=== PATIENT | female | born 1985 | race Caucasian/White ===

== ENCOUNTER 2018-11-18 01:07 | Emergency (ER) | payer MEDICAID ==
[~2018-11-18] VITALS: Ht 149.9 cm; Wt 45.9 kg
[2018-11-18] MEDS ORDERED: DEPA1TAB PO (01:21)
[2018-11-18] MEDS ORDERED: METOCLOPRAMIDE INJ 10MG/2ML VIAL (J2765) IV ONE (01:45)
[2018-11-18] MEDS ORDERED: NS 500 ML IV ONE (01:45)
[2018-11-18] MEDS ORDERED: KETOROLAC 30 MG/ML VIAL (J1885) IV ONE (01:45)
[2018-11-18] MEDS ORDERED: VALPROATE SOD INJ 125 MG in D5W 50 ML IV ONE (02:00)
[2018-11-18 02:10] LABS: BASO # 0.1 10^3/uL (0.0-0.2); BASO % 0.6 % (0.0-1.0); EOS # 0.8 10^3/uL (0.0-0.50); EOS % 4.4 % (0.0-3.0); HEMATOCRIT 41.9 % (36.0-47.0); HEMOGLOBIN 13.6 g/dl (12.0-15.5); LYMPH # 3.5 10^3/uL (1.5-4.5); LYMPH % 19.6 % (24.0-44.0); MEAN CORPUSCULAR HGB CONC 32.5 g/dl (32.0-36.5); MEAN CORPUSCULAR VOLUME 92.5 fl (80.0-96.0); MONO # 1.7 10^3/uL (0.0-0.8); MONO % 9.3 % (0.0-5.0); NEUTROPHILS # 11.7 10^3/uL (1.8-7.7); NEUTROPHILS % 65.5 % (36.0-66.0); PLATELET COUNT, AUTOMATED 175 10^3/uL (150-450); RED BLOOD COUNT 4.53 10^6/uL (4.00-5.40); WHITE BLOOD COUNT 17.9 10^3/uL (4.0-10.0)
[2018-11-18 02:29] LABS: HCG, SERUM QUALITATIVE NEGATIVE (NEGATIVE)
[2018-11-18 02:38] LABS: ALBUMIN 3.6 GM/DL (3.2-5.2); ALT/SGPT 43 U/L (12-78); AMYLASE 41 U/L (25-115); BILIRUBIN,TOTAL 0.2 MG/DL (0.2-1.0); BLOOD UREA NITROGEN 11 MG/DL (7-18); C REACTIVE PROTEIN QUANTITATIV < 0.30 MG/DL (0.00-0.30); CALCIUM LEVEL 9.5 MG/DL (8.5-10.1); CARBON DIOXIDE LEVEL 25 MEQ/L (21-32); CHLORIDE LEVEL 109 MEQ/L (98-107); CK-MB VALUE MASS < 1.0 NG/ML (<3.6); CPK CREATINE PHOSPHOKINASE 111 U/L (26-192); CREATININE FOR GFR 0.77 MG/DL (0.55-1.30); GLOMERULAR FILTRATION RATE > 60.0 (>60); GLUCOSE, FASTING 122 MG/DL (70-100); LIPASE 131 U/L (73-393); POTASSIUM SERUM 3.9 MEQ/L (3.5-5.1); SODIUM LEVEL 143 MEQ/L (136-145); TOTAL PROTEIN 7.1 GM/DL (6.4-8.2); TROPONIN I < 0.02 NG/ML (< 0.10); VALPROIC ACID (DEPAKOTE) 44.2 UG/ML (50.0-100.0)
[2018-11-18] MEDS: GASTROGRAFIN SOLUTION 30ML PO SCH ×2 (03:00→03:50)
[2018-11-18] MEDS ORDERED: diphenhydrAMINE INJ 50MG/ML VIAL (J1200) IV ONE (03:15)
[2018-11-18 03:24] LABS: AMORPHOUS SEDIMENT MODERATE (NEGATIVE); APPEARANCE, URINE CLOUDY (CLEAR); BACTERIA, URINE AUTO NEGATIVE (NEGATIVE); BILIRUBIN, URINE AUTO NEGATIVE (NEGATIVE); BLOOD, URINE BLOOD NEGATIVE (NEGATIVE); COLOR, URINE YELLOW (YELLOW); GLUCOSE, URINE (UA) AUTO NEGATIVE (NEGATIVE); KETONE, URINE AUTO NEGATIVE (NEGATIVE); LEUKOCYTE ESTERASE, URINE AUTO NEGATIVE (NEGATIVE); NITRITE, URINE AUTO NEGATIVE (NEGATIVE); PROTEIN, URINE AUTO NEGATIVE (NEGATIVE); RBC, URINE AUTO 1 /HPF (0-3); SPECIFIC GRAVITY URINE AUTO 1.014 (1.002-1.035); SQUAMOUS EPITHELIAL CELL UR AU 0 /HPF (0-6); WBC, URINE AUTO 0 /HPF (0-3)
[2018-11-18] MEDS ORDERED: ISOVUE-370 76% 125ML VIAL (Q9967 PER ML) As Ordered ONE (03:25)
[2018-11-18] MEDS ORDERED: REGL10TA6 PO (06:05)
[2018-11-18 06:17] VITALS: BP 109/70
--- NOTE | 2018-11-18 09:07 | REP ---
CHEST: Two views. There is no evidence of acute infiltrate. No pleural effusion is seen. The heart is normal in size. The mediastinal silhouette is unremarkable. The visualized osseous structures are intact. IMPRESSION: No acute pulmonary disease. Electronically Signed by Wil Lion MD 11/18/2018 03:57 P
--- NOTE | 2018-11-18 09:28 | REP ---
CT ABDOMEN AND PELVIS WITH ORAL AND IV CONTRAST: TECHNIQUE: Axial contrast enhanced images from the lung bases to the pubic symphysis using 100 mL Isovue 370 intravenous contrast material with multiplanar reformations. Visualized lung bases are clear. The liver, gallbladder, spleen, adrenals, pancreas and kidneys appear unremarkable. There is no hydronephrosis bilaterally. There is no abdominal aortic aneurysm. There is no adenopathy. There is no free air or free fluid. No bowel wall thickening is seen. There is no evidence of appendicitis. I see no pelvic mass. The urinary bladder is unremarkable. Fairly large amount of fecal material is seen throughout the colon. Large amount of ingested material is seen in the stomach. There is mild dilatation of small bowel loops in the left upper quadrant with possible mild mucosal thickening and possible mild enteritis. IMPRESSION: Large amount of fecal material in the colon and ingested material in the stomach. Mild dilatation of small bowel loops in the left upper quadrant with possible mild scattered mucosal thickening may indicate mild enteritis. No other significant acute findings. A preliminary report was provided by [facility] at the time of the exam. Electronically Signed by Wil Lion MD 11/18/2018 03:57 P
--- NOTE | 2018-11-19 06:12 | ECGEPIP ---
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
== END 2018-11-18 06:19 | disposition home or self-care (01) ==
LOC: M ED 01:07 → EDBD 01:07 → M ED 06:19
DX: K52.9 Noninfective gastroenteritis and colitis, unspecified (principal); R56.9 Unspecified convulsions; Z79.899 Other long term (current) drug therapy; Z88.1 Allergy status to other antibiotic agents
CPT/HCPCS: 71046; 74177; 80053; 80164; 81001; 82150; 82550; 82553; 83690; 84703; 85025; 86140; 93005; 96361; 96365; 96375; 99284; J1200; J1885; J2765; Q9963; Q9967

== ENCOUNTER → 2018-11-29 | Outpatient (REF) | payer MEDICAID ==
[~2018-11-29] MED LIST: DEPA1TAB PO; REGL10TA6 PO
[2018-11-29 13:33] LABS: BASO # 0.2 10^3/uL (0.0-0.2); BASO % 1.4 % (0.0-1.0); EOS # 4.3 10^3/uL (0.0-0.50); HEMATOCRIT 42.6 % (36.0-47.0); HEMOGLOBIN 13.7 g/dl (12.0-15.5); LYMPH # 3.7 10^3/uL (1.5-4.5); LYMPH % 23.5 % (24.0-44.0); MEAN CORPUSCULAR HEMOGLOBIN 30.7 pg (27.0-33.0); MEAN CORPUSCULAR HGB CONC 32.2 g/dl (32.0-36.5); MEAN CORPUSCULAR VOLUME 95.5 fl (80.0-96.0); MONO # 1.5 10^3/uL (0.0-0.8); MONO % 9.8 % (0.0-5.0); NEUTROPHILS # 5.8 10^3/uL (1.8-7.7); NEUTROPHILS % 36.8 % (36.0-66.0); PLATELET COUNT, AUTOMATED 134 10^3/uL (150-450); RED BLOOD COUNT 4.46 10^6/uL (4.00-5.40); WHITE BLOOD COUNT 15.7 10^3/uL (4.0-10.0)
[2018-11-29 14:02] LABS: ALBUMIN 3.8 GM/DL (3.2-5.2); ALT/SGPT 38 U/L (12-78); BILIRUBIN,TOTAL 0.3 MG/DL (0.2-1.0); BLOOD UREA NITROGEN 16 MG/DL (7-18); CALCIUM LEVEL 8.8 MG/DL (8.5-10.1); CARBON DIOXIDE LEVEL 25 MEQ/L (21-32); CHLORIDE LEVEL 108 MEQ/L (98-107); CREATININE FOR GFR 0.73 MG/DL (0.55-1.30); GLOMERULAR FILTRATION RATE > 60.0 (>60); GLUCOSE, FASTING 64 MG/DL (70-100); POTASSIUM SERUM 4.5 MEQ/L (3.5-5.1); RHEUMATOID FACTOR QUANT 10.3 IU/ML (<15.0); SODIUM LEVEL 139 MEQ/L (136-145); TOTAL PROTEIN 6.7 GM/DL (6.4-8.2); VALPROIC ACID (DEPAKOTE) 48.7 UG/ML (50.0-100.0)
[2018-11-29 14:22] LABS: EOS % 27.6 % (0.0-3.0)
[2018-11-29 15:05] LABS: ERYTHROCYTE SEDIMENTATION RATE 4 mm/hr (0-20)
[2018-11-30 14:53] LABS: ANTINUCLEAR ANTIBODIES DIRECT Negative (Negative)
== END ==
LOC: M LABNEURO 09:50
PROVIDERS: ATTEND Psychiatry & Neurology Neurology
DX: G40.89 Other seizures (principal)

== ENCOUNTER → 2018-12-31 | Outpatient (REF) | payer OTHER | LOC: M LAB REF 13:17 | PROVIDERS: ATTEND Specialist | DX: Z12.4 Encounter for screening for malignant neoplasm of cervix (principal); N87.0 Mild cervical dysplasia ==

== ENCOUNTER → 2019-01-31 | Outpatient (REF) | payer OTHER ==
[2019-01-31 15:30] LABS: FREE T3 3.3 PG/ML (2.2-4.0); FREE T4 0.86 NG/DL (0.76-1.46); FREE THYROXINE INDEX 2.7 % (1.3-4.8); THYROID STIMULATING HORMONE 3.13 uIU/ML (0.358-3.740); THYROXINE (T4) 7.2 UG/DL (4.5-12.0); TOTAL T3 105.6 NG/DL (60.0-181.0)
== END ==
LOC: M LABNEURO 11:45
PROVIDERS: ATTEND Psychiatry & Neurology Neurology
DX: R94.6 Abnormal results of thyroid function studies (principal)

== ENCOUNTER 2020-01-30 08:04 | Emergency (ER) | payer OTHER ==
[~2020-01-30] VITALS: Ht 149.9 cm; Wt 58.2 kg
[2020-01-30] MEDS ORDERED: ibuprofen 400 (08:13)
[2020-01-30] MEDS ORDERED: ONDANSETRON 4MG/2ML VIAL IV ONE (08:30)
[2020-01-30] MEDS ORDERED: NS 1,000 ML IV ONE (08:30)
[2020-01-30 08:45] LABS: BASO # 0.1 10^3/uL (0.0-0.2); BASO % 0.9 % (0.0-1.0); EOS # 0.3 10^3/uL (0.0-0.5); EOS % 2.3 % (0.0-3.0); HEMATOCRIT 40.6 % (36.0-47.0); LYMPH % 25.5 % (24.0-44.0); MEAN CORPUSCULAR HEMOGLOBIN 30.2 pg (27.0-33.0); MEAN CORPUSCULAR VOLUME 94.2 fl (80.0-96.0); MONO # 1.4 10^3/uL (0.0-0.8); MONO % 11.6 % (0.0-5.0); NEUTROPHILS # 6.8 10^3/uL (1.5-8.5); PLATELET COUNT, AUTOMATED 163 10^3/uL (150-450); RED BLOOD COUNT 4.31 10^6/uL (4.00-5.40); WHITE BLOOD COUNT 11.6 10^3/uL (4.0-10.0)
[2020-01-30 09:15] LABS: BLOOD UREA NITROGEN 11 MG/DL (7-18); CALCIUM LEVEL 8.4 MG/DL (8.5-10.1); CARBON DIOXIDE LEVEL 23 MEQ/L (21-32); CHLORIDE LEVEL 112 MEQ/L (98-107); CREATININE FOR GFR 0.68 MG/DL (0.55-1.30); GLOMERULAR FILTRATION RATE > 60.0 (>60); GLUCOSE, FASTING 111 MG/DL (70-100); POTASSIUM SERUM 3.8 MEQ/L (3.5-5.1); SODIUM LEVEL 142 MEQ/L (136-145)
--- NOTE | 2020-01-30 10:25 | REP ---
RENAL ULTRASOUND: Real-time sonographic evaluation of the kidneys performed. The kidneys are normal in size and echotexture, right kidney measuring 9.8 x 4.1 x 4.0 cm and left kidney 9.3 x 3.8 x 4.3 cm. There is no hydronephrosis or nephrolithiasis. No renal mass is seen. Ureteral jets are seen in the urinary bladder bilaterally with Doppler color evaluation. IMPRESSION: Negative renal ultrasound. Electronically Signed by Wil Lion MD 01/30/2020 01:15 P
[2020-01-30] MEDS ORDERED: AUGM875T28 PO (11:03)
[2020-01-30 11:05] VITALS: BP 120/56
[2020-01-30] MEDS ORDERED: AUGMENTIN 875 MG TAB PO ONE (11:15)
== END 2020-01-30 11:18 | disposition home or self-care (01) ==
LOC: M ED 08:04
DX: R10.814 Left lower quadrant abdominal tenderness (principal); F17.210 Nicotine dependence, cigarettes, uncomplicated; Z88.0 Allergy status to penicillin; Z88.8 Allergy status to other drugs, medicaments and biological substances
CPT/HCPCS: 76775; 80048; 81001; 84702; 85025; 87086; 96374; 99284; J2405

== ENCOUNTER → 2020-02-02 | Outpatient (REF) | payer OTHER ==
[~2020-02-02] MED LIST changes: +AUGM875T28 PO; +ibuprofen 400
[2020-02-02 15:56] LABS: FREE T4 1.05 NG/DL (0.76-1.46)
[2020-02-02 16:00] LABS: LUTEINIZING HORMONE 1.7 mIU/mL; PROGESTERONE 6.37 NG/ML; PROLACTIN 4.9 NG/ML
[2020-02-02 16:01] LABS: FOLLICLE STIMULATING HORMONE 0.9 mIU/mL
== END ==
LOC: M PLALAB 13:10
PROVIDERS: ATTEND Specialist
DX: N92.6 Irregular menstruation, unspecified (principal)

== ENCOUNTER → 2020-02-15 | Outpatient (CLI) | payer OTHER ==
[~2020-02-15] MED LIST changes: +ISOVUE-370 76% 100ML VIAL As Ordered ONE; +NORC1TAB7 PO; +ONDA4TAB6 PO; +clomid PO
--- NOTE | 2020-02-15 14:41 | REP ---
HYSTEROSALPINGOGRAM: Four views. HISTORY: Primary infertility. PROCEDURE: Endometrium is cannulated and contrast was injected by the attending boxing promoter. Fluoroscopic spot films are acquired along with fluoroscopy. 0.5 minutes of fluoroscopy time was utilized. FINDINGS: Fluoroscopy spot radiographs document filling of a normal endometrial cavity. The uterus is tipped somewhat to the right. Normal isthmic and ampullary fallopian tube opacification is achieved and bilateral tubal patency was documented. IMPRESSION: Normal hysterosalpingogram. Bilateral tubal patency is documented. Electronically Signed by Albert Chavarria MD 02/15/2020 05:18 P
--- NOTE | 2020-02-16 13:52 | RO ---
DATE OF PROCEDURE: 02/15/2020 PREPROCEDURE DIAGNOSIS: Primary infertility. POSTPROCEDURE DIAGNOSIS: Primary infertility. PROCEDURE: Hysterosalpingogram. SURGEON: Moises Guillen MD HEALTH EDUCATOR: ANESTHESIA: None. ESTIMATED BLOOD LOSS: Minimal. FINDINGS: Normal-appearing endometrial cavity with bilateral patency of fallopian tubes with normal fill and spill. DESCRIPTION OF PROCEDURE: Procedure summary. The patient was brought to the radiology suite. Consent previously signed for HSG procedure. The patient was positioned on the table in lithotomy position. Fluoroscope was positioned over the patient. A speculum was placed in the vagina. The anterior lip of the cervix was grasped with tenaculum. The cervix was prepped with Betadine. An HSG catheter was threaded through the cervix and the balloon inflated inside the cervix. The radiologist was then called to the room. Radiopaque dye was instilled through the catheter tubing into the uterus. Immediate fill and spill on both sides was observed. Findings are as noted above. The patient tolerated the procedure well. All instruments were removed.
== END ==
LOC: M RADPRO 12:10
PROVIDERS: ATTEND Specialist
DX: N97.0 Female infertility associated with anovulation (principal)
CPT/HCPCS: 58340; 74740; Q9967

== ENCOUNTER → 2020-02-19 | Outpatient (REF) | payer OTHER ==
[~2020-02-19] MED LIST changes: -ISOVUE-370 76% 100ML VIAL As Ordered ONE; -NORC1TAB7 PO; -ONDA4TAB6 PO; -clomid PO
== END ==
LOC: M LAB REF 10:04
PROVIDERS: ATTEND Physician Assistant
DX: N39.0 Urinary tract infection, site not specified (principal)

== ENCOUNTER 2020-05-24 19:15 | Emergency (ER) | payer OTHER ==
[~2020-05-24] VITALS: Ht 149.9 cm; Wt 54.5 kg
[2020-05-24] MEDS ORDERED: clomid PO (19:41)
[2020-05-24] MEDS ORDERED: NS 1,000 ML IV ONE (21:45)
[2020-05-24] MEDS ORDERED: ONDANSETRON 4MG/2ML VIAL IV ONE (21:45)
[2020-05-24 22:07] LABS: BASO # 0.1 10^3/uL (0.0-0.2); BASO % 0.3 % (0.0-1.0); EOS # 0.1 10^3/uL (0.0-0.5); EOS % 0.6 % (0.0-3.0); HEMATOCRIT 46.2 % (36.0-47.0); HEMOGLOBIN 14.3 g/dl (12.0-15.5); LYMPH % 4.5 % (24.0-44.0); MEAN CORPUSCULAR HEMOGLOBIN 27.4 pg (27.0-33.0); MEAN CORPUSCULAR VOLUME 88.5 fl (80.0-96.0); MONO # 1.7 10^3/uL (0.0-0.8); MONO % 7.5 % (0.0-5.0); NEUTROPHILS # 19.4 10^3/uL (1.5-8.5); NEUTROPHILS % 86.4 % (36.0-66.0); PLATELET COUNT, AUTOMATED 164 10^3/uL (150-450); RED BLOOD COUNT 5.22 10^6/uL (4.00-5.40); WHITE BLOOD COUNT 22.4 10^3/uL (4.0-10.0)
[2020-05-24] MEDS ORDERED: MORPHINE 4 MG/ML 1ML VIAL/SYRINGE (J2270) IV PRN (22:15)
[2020-05-25 00:36] LABS: HCG, SERUM QUALITATIVE NEGATIVE (NEGATIVE)
[2020-05-25 00:45] LABS: ALBUMIN 3.6 GM/DL (3.2-5.2); ALT/SGPT 64 U/L (12-78); BILIRUBIN,DIRECT < 0.1 MG/DL (0.0-0.2); BILIRUBIN,TOTAL 0.4 MG/DL (0.2-1.0); BLOOD UREA NITROGEN 10 MG/DL (7-18); CALCIUM LEVEL 8.7 MG/DL (8.5-10.1); CARBON DIOXIDE LEVEL 22 MEQ/L (21-32); CHLORIDE LEVEL 119 MEQ/L (98-107); CREATININE FOR GFR 0.66 MG/DL (0.55-1.30); GLOMERULAR FILTRATION RATE > 60.0 (>60); GLUCOSE, FASTING 112 MG/DL (70-100); LIPASE 149 U/L (73-393); POTASSIUM SERUM 5.4 MEQ/L (3.5-5.1); SODIUM LEVEL 148 MEQ/L (136-145); TOTAL PROTEIN 7.2 GM/DL (6.4-8.2)
[2020-05-25] MEDS ORDERED: ISOVUE-370 76% 100ML VIAL As Ordered ONE (01:00)
--- NOTE | 2020-05-25 01:46 | REPVR ---
PROCEDURE INFORMATION: Exam: CT Abdomen and Pelvis with Contrast Exam date and time: 05/25/20 (1:01am) Age: 35 years old Clinical indication: Right-sided abdominal pain TECHNIQUE: Imaging protocol: Computed tomography of the abdomen and pelvis with intravenous contrast. Radiation optimization: All CT scans at this facility use at least one of these dose optimization techniques: automated exposure control; mA and/or kV adjustment per patient size (includes targeted exams where dose is matched to clinical indication); or iterative reconstruction. Contrast material: Iso Contrast volume: 100 ml Contrast route: IV COMPARISON: CT ABDOMEN PELVIS of 11/18/18 FINDINGS: Liver: Normal. No solid mass. Gallbladder and bile ducts: Normal. No calcified stones. No ductal dilatation. Pancreas: Normal. No ductal dilatation. Spleen: Prominent spleen (unchanged appearance). Adrenals: Normal. No mass. Kidneys and ureters: Normal. No hydronephrosis. Stomach and bowel: The distal esophagus is mildly distended and fluid-filled. No bowel obstruction. Multiple thickened, fluid-filled, mildly distended small bowel loops (predominantly in the lower abdomen and pelvis). The colon most likely is unremarkable (colonic loops are not optimally distended nor opacified, and are difficult to fully evaluate). Appendix: A normal appendix is visualized. Intraperitoneal space: Unremarkable. No free air. No significant fluid collection. Vasculature: Unremarkable. No abdominal aortic aneurysm. Lymph nodes: Unremarkable. No enlarged lymph nodes. Urinary bladder: Unremarkable as visualized. Reproductive: Unremarkable as visualized. Fluid: Small amount of pelvic fluid. Bones/joints: Unremarkable. No acute fracture. Soft tissues: Unremarkable. IMPRESSION: Thickened, inflamed small bowel loops in the lower abdomen and pelvis -- probably distal jejunal and ileal loops. The colon most likely is not involved. A nonspecific small bowel enteritis is likely -- perhaps infectious etiology; perhaps inflammatory bowel disease. Small amount of lower pelvic fluid. No discrete abscess. No hydronephrosis. Prominent spleen again seen. Electronically signed by: Deborah Hilario On 05/25/2020 01:46:23 AM
[2020-05-25 02:39] VITALS: BP 90/54
[2020-05-25] MEDS ORDERED: ONDA4TAB6 PO (02:39)
== END 2020-05-25 02:57 | disposition home or self-care (01) ==
LOC: M ED 19:15
DX: K52.9 Noninfective gastroenteritis and colitis, unspecified (principal); E03.9 Hypothyroidism, unspecified; F17.200 Nicotine dependence, unspecified, uncomplicated; Z88.1 Allergy status to other antibiotic agents; Z88.8 Allergy status to other drugs, medicaments and biological substances; Z79.899 Other long term (current) drug therapy
CPT/HCPCS: 74177; 80048; 80076; 81001; 83690; 84703; 85025; 96361; 96374; 96375; 99284; J2270; J2405; Q9967

== ENCOUNTER 2020-06-22 13:12 | Emergency (ER) | payer OTHER ==
[~2020-06-22] VITALS: Ht 149.9 cm; Wt 56.5 kg
[~2020-06-22 13:12] MED LIST changes: +ONDA4TAB6 PO; +clomid PO
[2020-06-22] MEDS ORDERED: BOOSTRIX/ADACEL VACCINE (DIPHTH/PERTUSS/ACELL/TETANUS) 0.5ML SYR IM ONE (14:15)
--- NOTE | 2020-06-22 14:37 | REP ---
INDICATION: middle finger stuck in car door COMPARISON: None. TECHNIQUE: Four views right 3rd digit obtained. FINDINGS: Four views of the right 4th digit are performed. There is an oblique nondisplaced fracture of the distal phalanx. No other acute fracture or dislocation is seen. IMPRESSION: Oblique nondisplaced fracture 3rd distal phalanx. <Electronically signed by Wil Lion > 06/22/20 [id number]
[2020-06-22] MEDS ORDERED: NORC1TAB7 PO (14:55)
[2020-06-22 15:05] VITALS: BP 113/53
== END 2020-06-22 15:10 | disposition home or self-care (01) ==
LOC: M ED 13:12
DX: S62.662A Nondisplaced fracture of distal phalanx of right middle finger, initial encounter for closed fracture (principal); S60.418A Abrasion of other finger, initial encounter; W23.0XXA Caught, crushed, jammed, or pinched between moving objects, initial encounter; Y92.810 Car as the place of occurrence of the external cause; F17.200 Nicotine dependence, unspecified, uncomplicated; Z88.1 Allergy status to other antibiotic agents; Z79.899 Other long term (current) drug therapy

== ENCOUNTER 2020-11-17 16:15 | Emergency (ER) | payer OTHER ==
[~2020-11-17] VITALS: Ht 149.9 cm; Wt 55.9 kg
[~2020-11-17 16:15] MED LIST changes: +NORC1TAB7 PO
[2020-11-17] MEDS ORDERED: ONDANSETRON 4MG/2ML VIAL IV ONE (17:05)
[2020-11-17] MEDS ORDERED: KETOROLAC 30 MG/ML 1ML VIAL IV ONE (17:05)
[2020-11-17] MEDS ORDERED: NS 1,000 ML IV ONE (17:05)
[2020-11-17 17:48] LABS: BASO # 0.1 10^3/uL (0.0-0.2); BASO % 0.3 % (0.0-1.0); EOS # 0.2 10^3/uL (0.0-0.5); EOS % 0.6 % (0.0-3.0); HEMATOCRIT 46.2 % (36.0-47.0); HEMOGLOBIN 14.3 g/dl (12.0-15.5); LYMPH % 6.8 % (24.0-44.0); MEAN CORPUSCULAR HEMOGLOBIN 26.7 pg (27.0-33.0); MEAN CORPUSCULAR VOLUME 86.4 fl (80.0-96.0); MONO # 2.3 10^3/uL (0.0-0.8); NEUTROPHILS % 83.3 % (36.0-66.0); PLATELET COUNT, AUTOMATED 146 10^3/uL (150-450); RED BLOOD COUNT 5.35 10^6/uL (4.00-5.40)
[2020-11-17] MEDS ORDERED: ISOVUE-370 76% 100ML VIAL As Ordered ONE (18:06)
[2020-11-17 18:15] LABS: ALT/SGPT 45 U/L (12-78); BILIRUBIN,DIRECT < 0.1 MG/DL (0.0-0.2); BILIRUBIN,TOTAL 0.3 MG/DL (0.2-1.0); LIPASE 106 U/L (73-393); TOTAL PROTEIN 7.8 GM/DL (6.4-8.2)
[2020-11-17 18:19] LABS: WHITE BLOOD COUNT 28.8 10^3/uL (4.0-10.0)
--- NOTE | 2020-11-17 18:58 | REPVR ---
PROCEDURE INFORMATION: Exam: CT Abdomen And Pelvis With Contrast Exam date and time: 11/17/2020 6:29 PM Age: 35 years old Clinical indication: Abdominal pain; Localized; Right lower quadrant (rlq); Additional info: Rlq pain TECHNIQUE: Imaging protocol: Computed tomography of the abdomen and pelvis with contrast. Radiation optimization: All CT scans at this facility use at least one of these dose optimization techniques: automated exposure control; mA and/or kV adjustment per patient size (includes targeted exams where dose is matched to clinical indication); or iterative reconstruction. Contrast material: ISOVUE 370; Contrast volume: 100 ml; Contrast route: INTRAVENOUS (IV); COMPARISON: CT ABD/PEL W/IV CONTRAST ONLY 05/25/2020 1:01 AM FINDINGS: Mediastinal space: A small sliding hiatal hernia is present. Liver: There is a diffuse decrease in hepatic parenchymal density, consistent with steatosis. Gallbladder and bile ducts: Normal. No calcified stones. No ductal dilation. Pancreas: Normal. No ductal dilation. Spleen: Normal. No splenomegaly. Adrenal glands: Normal. No mass. Kidneys and ureters: Normal. No hydronephrosis. Stomach and bowel: Multiple fluid-filled mildly dilated loops of small bowel in the mid abdomen, with mild engorgement of the Vasa recta, findings consistent with enteritis. Boggy appearance of the right colon may indicate segmental colitis. Appendix: No evidence of appendicitis. Intraperitoneal space: Unremarkable. No free air. No significant fluid collection. Vasculature: Unremarkable. No abdominal aortic aneurysm. Lymph nodes: Unremarkable. No enlarged lymph nodes. Urinary bladder: Unremarkable as visualized. Reproductive: Unremarkable as visualized. Bones/joints: Unremarkable. No acute fracture. Soft tissues: Unremarkable. IMPRESSION: 1. A small sliding hiatal hernia is present. 2. There is a diffuse decrease in hepatic parenchymal density, consistent with steatosis. 3. Multiple fluid-filled mildly dilated loops of small bowel in the mid abdomen, with mild engorgement of the Vasa recta, findings consistent with enteritis. 4. Boggy appearance of the right colon may indicate segmental colitis. Electronically signed by: Damon Rogers On 11/17/2020 18:58:14 PM
[2020-11-17] MEDS ORDERED: metroNIDAZOLE (FLAGYL) 500MG TABLET PO ONE (19:25)
[2020-11-17] MEDS ORDERED: CIPROFLOXACIN 500MG TABLET PO ONE (19:25)
[2020-11-17] MEDS ORDERED: FLAG500T PO (19:27)
[2020-11-17] MEDS ORDERED: ONDA4TAB6 PO (19:27)
[2020-11-17] MEDS ORDERED: CIPR-249 PO (19:27)
[2020-11-17 19:50] VITALS: BP 117/61
[2020-11-17] MEDS ORDERED: VANC125C3 PO (22:33)
== END 2020-11-17 19:50 | disposition home or self-care (01) ==
LOC: M ED 16:15
DX: K52.9 Noninfective gastroenteritis and colitis, unspecified (principal); Z88.1 Allergy status to other antibiotic agents; Z88.8 Allergy status to other drugs, medicaments and biological substances; F17.200 Nicotine dependence, unspecified, uncomplicated; F12.10 Cannabis abuse, uncomplicated; E87.1 Hypo-osmolality and hyponatremia; E03.9 Hypothyroidism, unspecified; K44.0 Diaphragmatic hernia with obstruction, without gangrene
CPT/HCPCS: 36415; 74177; 80047; 80076; 83690; 84702; 85025; 87505; 96361; 96374; 96375; 99284; J1885; J2405; Q9967

== ENCOUNTER → 2021-01-15 | Outpatient (REF) | payer OTHER ==
[~2021-01-15] MED LIST changes: +CIPR-249 PO; +FLAG500T PO; +VANC125C3 PO
[2021-01-15 18:21] LABS: HEMATOCRIT 42.1 % (36.0-47.0); HEMOGLOBIN 13.1 g/dl (12.0-15.5); MEAN CORPUSCULAR HEMOGLOBIN 28.7 pg (27.0-33.0); MEAN CORPUSCULAR HGB CONC 31.1 g/dl (32.0-36.5); MEAN CORPUSCULAR VOLUME 92.1 fl (80.0-96.0); PLATELET COUNT, AUTOMATED 139 10^3/uL (150-450); RED BLOOD COUNT 4.57 10^6/uL (4.00-5.40)
[2021-01-15 20:11] LABS: HIV 1&2 SCREEN CENTAUR NEGATIVE (NEGATIVE)
== END ==
LOC: M PLALAB 14:34
PROVIDERS: ATTEND Specialist
DX: Z34.01 Encounter for supervision of normal first pregnancy, first trimester (principal)

== ENCOUNTER 2021-02-28 11:08 | Emergency (ER) | payer OTHER ==
[~2021-02-28] VITALS: Ht 149.9 cm; Wt 58.8 kg
[2021-02-28] MEDS ORDERED: PRENTAB53 PO (11:14)
[2021-02-28 11:54] LABS: BASO # 0.1 10^3/uL (0.0-0.2); BASO % 0.4 % (0.0-1.0); EOS # 0.2 10^3/uL (0.0-0.5); EOS % 1.5 % (0.0-3.0); HEMATOCRIT 33.5 % (36.0-47.0); HEMOGLOBIN 10.6 g/dl (12.0-15.5); LYMPH # 2.3 10^3/uL (1.5-5.0); LYMPH % 16.2 % (24.0-44.0); MEAN CORPUSCULAR HEMOGLOBIN 29.3 pg (27.0-33.0); MEAN CORPUSCULAR HGB CONC 31.6 g/dl (32.0-36.5); MEAN CORPUSCULAR VOLUME 92.5 fl (80.0-96.0); MONO # 1.4 10^3/uL (0.0-0.8); MONO % 9.8 % (2.0-8.0); NEUTROPHILS # 9.8 10^3/uL (1.5-8.5); PLATELET COUNT, AUTOMATED 167 10^3/uL (150-450); RED BLOOD COUNT 3.62 10^6/uL (4.00-5.40); WHITE BLOOD COUNT 14.3 10^3/uL (4.0-10.0)
[2021-02-28] MEDS ORDERED: ACETAMINOPHEN 325 MG TAB PO ONE (12:15)
[2021-02-28] MEDS ORDERED: NS 1,000 ML IV ONE (12:15)
[2021-02-28 12:20] LABS: BLOOD UREA NITROGEN 12 MG/DL (7-18); CALCIUM LEVEL 8.9 MG/DL (8.5-10.1); CARBON DIOXIDE LEVEL 24 MEQ/L (21-32); CHLORIDE LEVEL 108 MEQ/L (98-107); CK-MB VALUE MASS 1.3 NG/ML (<3.6); CPK CREATINE PHOSPHOKINASE 70 U/L (26-192); CREATININE FOR GFR 0.36 MG/DL (0.55-1.30); GLOMERULAR FILTRATION RATE > 60.0 (>60); GLUCOSE, FASTING 82 MG/DL (70-100); MB/CK RELATIVE INDEX 1.86 (< OR =4); SODIUM LEVEL 137 MEQ/L (136-145); TROPONIN I < 0.02 NG/ML (< 0.10)
[2021-02-28] MEDS ORDERED: hydrOXYzine 25 MG TAB PO ONE (12:50)
[2021-02-28 13:09] LABS: ALBUMIN 2.8 GM/DL (3.2-5.2); ALT/SGPT 212 U/L (12-78); BILIRUBIN,DIRECT < 0.1 MG/DL (0.0-0.2); BILIRUBIN,TOTAL 0.1 MG/DL (0.2-1.0); LIPASE 109 U/L (73-393); TOTAL PROTEIN 6.3 GM/DL (6.4-8.2)
--- NOTE | 2021-02-28 14:22 | REP ---
INDICATION: chest pain/elevated lfts. COMPARISON: None TECHNIQUE: Transabdominal FINDINGS: Multiple ultrasonographic images of the liver show the hepatic parenchymal echo texture to appear unremarkable. There are no focal masses. There is no intrahepatic ductal dilatation. The common bile duct measures approximately 4 mm in its greatest transverse dimension. Multiple ultrasonographic images of the gallbladder show no focal or diffuse gallbladder wall thickening. There are no echogenic foci within the gallbladder lumen, which casts acoustic shadows. There is no pericholecystic edema. Images of the pancreatic region show no gross abnormality. The imaged portion of the right kidney is unremarkable. IMPRESSION: Unremarkable right upper quadrant ultrasound. Accredited by the [employer] in General Ultrasound. <Electronically signed by Lc Bernabe > 02/28/21 [id number]
[2021-02-28 16:04] VITALS: BP 86/48
--- NOTE | 2021-02-28 18:03 | ECGEPIP ---
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
== END 2021-02-28 16:30 | disposition home or self-care (01) ==
LOC: M ED 11:08
DX: O99.891 Other specified diseases and conditions complicating pregnancy (principal); R07.89 Other chest pain; R74.8 Abnormal levels of other serum enzymes; O99.342 Other mental disorders complicating pregnancy, second trimester; F43.10 Post-traumatic stress disorder, unspecified; Z3A.18 18 weeks gestation of pregnancy; Z88.8 Allergy status to other drugs, medicaments and biological substances; Z88.1 Allergy status to other antibiotic agents

== ENCOUNTER → 2021-03-11 | Outpatient (CLI) | payer OTHER ==
[~2021-03-11] MED LIST changes: +PRENTAB53 PO
--- NOTE | 2021-03-11 23:06 | REP ---
INDICATION: ANATOMY COMPARISON: None. TECHNIQUE: Transabdominal obstetrical ultrasound with color Doppler evaluation. FINDINGS: Examination demonstrates a single live intrauterine in variable presentation. motion is identified by technologist. Placenta is noted anterior and grade 0 without evidence for placenta previa or abruption. Amniotic fluid volume is normal. Cervix measures 3.9 cm in length and appears closed.. Selected gestational age: 19 weeks 3 days with SUSIE 08/02/2021. Gestational age by current measurements 18 weeks 3 days with SUSIE 08/09/2021. FHR equals 140 beats per minute. BPD: 4.3 cm at 19 weeks 1 day HC: 15.3 cm at 18 weeks 2 days AC: 12.2 cm at 17 weeks 6 days FL: 2.8 cm at 18 weeks 4 days HL: 2.6 cm at 18 weeks 2 days HC/AC: 1.25 Estimated weight 229 grams (less than 3rdpercentile based on selected age). Anatomical assessment demonstrates normal structures including cranium, choroid plexus, cavum, cerebellum/posterior fossa, facial profile, lungs, ventricular outflow tracts, diaphragm, stomach, cord insertion/three-vessel cord, bladder, spine, and extremities. IMPRESSION: 1. Estimated weight less than 3rd percentile based on age at 19 weeks 3 days. 2. Limited evaluation of the facial features (nose/lips), four-chamber heart views, and bilateral kidneys due to positioning. <Electronically signed by Pedro Basilio > 03/11/21 [id number]
== END ==
LOC: M WHC 11:10
PROVIDERS: ATTEND Advanced Practice Midwife
DX: Z34.02 Encounter for supervision of normal first pregnancy, second trimester (principal)

== ENCOUNTER → 2021-04-16 | Outpatient (CLI) | payer OTHER ==
--- NOTE | 2021-04-16 16:52 | REP ---
INDICATION: F/U ANATOMY,GROWTH. FOLLOW-UP UPPER LIP, FOUR-CHAMBER HEART, AND KIDNEYS COMPARISON: 03/11/2020 TECHNIQUE: Transabdominal scanning FINDINGS: Multiple ultrasonographic images of the gravid uterus shows a single living intrauterine gestation in the cephalic presentation. Doppler interrogation of the heart shows a heart rate of 143 beats per minute. The placenta is anterior and not low-lying. The cervix measures 3.2 cm in length and is closed. The subjective amniotic fluid volume is within normal limits. BPD: 6 cm 24 weeks 4 days HC: 21.8 cm 23 weeks 6 days AC: 18.4 cm 23 weeks 1 day FL: 4.4 cm 24 weeks 4 days The estimated weight is 632 g which is at the 14th percentile for a 24 week 4 day gestational age. The upper lip and four-chamber heart were still suboptimally visualized. The kidneys were seen to be unremarkable. IMPRESSION: Single living intrauterine gestation as described above with an estimated gestational age of 24 weeks 1 day via composite criteria and an estimated date of delivery of 08/05/2021 by today's exam. No anomalies were detected, however, recommend a follow-up examination for optimal visualization of the upper lip and four-chamber heart. <Electronically signed by Lc Bernabe > 04/16/21 [id number]
== END ==
LOC: M WHC 13:43
PROVIDERS: ATTEND Advanced Practice Midwife
DX: Z36.89 Encounter for other specified antenatal screening (principal); Z3A.19 19 weeks gestation of pregnancy

== ENCOUNTER → 2021-04-17 | Outpatient (CLI) | payer OTHER | LOC: M WHC 15:07 | PROVIDERS: ATTEND Obstetrics & Gynecology | DX: Z36.89 Encounter for other specified antenatal screening (principal); Z3A.24 24 weeks gestation of pregnancy ==

== ENCOUNTER → 2021-05-13 | Outpatient (CLI) | payer OTHER ==
--- NOTE | 2021-05-13 14:57 | REP ---
INDICATION: F/U ANATOMY. FOLLOW-UP UPPER LIP AND FOUR-CHAMBER HEART COMPARISON: 04/16/2021 TECHNIQUE: Transabdominal real-time sonographic evaluation FINDINGS: Multiple ultrasonographic images of the gravid uterus shows a single living intrauterine gestation in the cephalic presentation. Doppler interrogation of the heart shows a heart rate of 146 beats per minute. The placenta is anterior and not low-lying. The cervix measures 3 cm length and is closed. The subjective amniotic fluid volume is within normal limits. BPD: 6.9 cm 27 weeks 5 days HC: 25.5 cm 27 weeks 5 days AC: 22.5 cm 26 weeks 6 days FL: 5.4 cm 28 weeks 4 days The estimated weight is 1102 g which is at the 14th percentile for a 28 week 3 day gestational age. The upper lip was seen to be unremarkable today. Four-chamber heart view was also seen to be unremarkable. IMPRESSION: Single living intrauterine gestation as described above with an estimated gestational age of 27 weeks 4 days via composite criteria and an estimated date of delivery of 08/08/2021 by today's exam. No anomalies were detected. <Electronically signed by Lc Bernabe > 05/13/21 [id number]
== END ==
LOC: M WHC 13:39
PROVIDERS: ATTEND Obstetrics & Gynecology
DX: Z36.9 Encounter for antenatal screening, unspecified (principal); Z3A.27 27 weeks gestation of pregnancy

== ENCOUNTER → 2021-06-04 | Outpatient (CLI) | payer OTHER ==
[2021-06-04 18:13] LABS: HEMATOCRIT 35.7 % (36.0-47.0); HEMOGLOBIN 11.3 g/dl (12.0-15.5); MEAN CORPUSCULAR HEMOGLOBIN 28.8 pg (27.0-33.0); MEAN CORPUSCULAR HGB CONC 31.7 g/dl (32.0-36.5); MEAN CORPUSCULAR VOLUME 91.1 fl (80.0-96.0); PLATELET COUNT, AUTOMATED 174 10^3/uL (150-450); RED BLOOD COUNT 3.92 10^6/uL (4.00-5.40); WHITE BLOOD COUNT 16.1 10^3/uL (4.0-10.0)
== END ==
LOC: M LAB 16:21
PROVIDERS: ATTEND Advanced Practice Midwife
DX: O09.512 Supervision of elderly primigravida, second trimester (principal); Z3A.00 Weeks of gestation of pregnancy not specified

== ENCOUNTER → 2021-06-18 | Outpatient (CLI) | payer OTHER | LOC: M LAB 08:10 | PROVIDERS: ATTEND Obstetrics & Gynecology | DX: Z36.89 Encounter for other specified antenatal screening (principal); O99.810 Abnormal glucose complicating pregnancy; Z3A.00 Weeks of gestation of pregnancy not specified ==

== ENCOUNTER → 2021-07-15 | Outpatient (REF) | payer OTHER | LOC: M SFHCWAGY 16:52 | PROVIDERS: ATTEND Obstetrics & Gynecology | DX: Z34.93 Encounter for supervision of normal pregnancy, unspecified, third trimester (principal) ==

== ENCOUNTER → 2021-07-31 | Outpatient (CLI) | payer OTHER ==
[~2021-07-31] MED LIST changes: +ACET-683 PO; +IBUP80TA PO
== END ==
LOC: M RAD 07:36
PROVIDERS: ATTEND Advanced Practice Midwife
DX: O26.849 Uterine size-date discrepancy, unspecified trimester (principal)

== ENCOUNTER 2021-08-02 08:20 | Inpatient (IN) | payer OTHER ==
[2021-08-02] VITALS (14 sets, daily range): BP systolic 94–122; BP diastolic 51–68
[~2021-08-02] VITALS: Ht 149.9 cm; Wt 67.1 kg
[~2021-08-02 08:20] MED LIST changes: -ACET-683 PO; -IBUP80TA PO
--- OUTSIDE RECORDS SUMMARY | 2021-08-02 08:43 | CCD | Continuity of Care Document ---
Author Author Nataly MARTINEZ PA-C Organization Unknown Address [address] [place] [address] Phone [phone] Care Team Providers Care Gambling Cashier Name Role Phone Mar Martinez PA-C AUTM [phone] [facility] Gastroenterology AUTM [phone] Problems Active Problems Provider Date Posttraumatic stress disorder Mar Martinez PA-C Onset: 08/2019 Anxiety state Mar Martinez PA-C Onset: 05/31/2020 Recurrent major depressive episodes Mar Martinez PA-C Onse t: 05/31/2020 Attention-deficit hyperactivity disorder, unspecified type E donato Martinez PA-C Onset: 05/31/2020 Social History Type Date Description Comments Sex Unknown ETOH Use Occasionally consumes alcohol Recreational Drug Use Regularly uses Marijuana Tobacco Use Start: Unknown End: Unknown Patient is a former smoker quit smoking 12/22/20 Allergies and adverse reactions Active Allergies Criticality Reaction | Severity Comments Date Erythromycin Unable to assess criticality Hives 05/31/2020 Azelastine Unable to assess criticality severe mood swings 05/31/2020 Medications Active Medications SIG Qnty Indications Ordering Provide r Date One Daily Tablets Unknown Immunizations CPT Code Status Date Vaccine Lot # [id number] Given 05/31/2020 Influenza (>= 6 Months) P.F. Vaccine 9HT27 Vital Signs Date Vital Result Comment 01/07/2021 7:08am BP Systolic 118 mmHg BP Diastolic 78 mmHg Heart Rate 77 /min Body Temperature 98.0 F Respiratory Rate 16 /min O2 % BldC Oximetry 99 % Weight 117.50 lb Weight 53.298 kg Height 59 inches 4'11" BMI (Body Mass Index) 23.7 kg/m2 BSA (Body Surface Area) 1.47 m2 11/29/2020 3:10pm BP Systolic 122 mmHg BP Diastolic 80 mmHg Heart Rate 93 /min Body Temperature 97.1 F Respiratory Rate 17 /min O2 % BldC Oximetry 99 % Weight 121.00 lb Weight 54.886 kg Height 59 inches 4'11" BMI (Body Mass Index) 24.4 kg/m2 BSA (Body Surface Area) 1.49 m2 Results Test Acquired Date Facility Test Result H/L Range Note Ua W/ Reflex To Culture 02/28/[address] [facility] Appearance, Urine RFX CLEAR Normal Clear Color, Urine RFX STRAW Normal Yellow PH,Urine RFX 7.0 units Normal 5.0-9.0 Specific [place] Ur Auto RFX 1.010 Normal 1.002-1.035 Protein, Urine Auto RFX NEGATIVE mg/dL Normal Negative Glucose, Urine (Ua) Auto RFX NEGATIVE mg/dL Normal Negative Ketone, Urine Auto RFX NEGATIVE mg/dL Normal Negative Urobilinogen, Urine Auto RFX 0.2 mg/dL Normal 0.0-2.0 Bilirubin, Urine Auto RFX NEGATIVE Normal Negative Nitrite, Urine Auto RFX NEGATIVE Normal Negative Leukocyte Esterase Ur Auto RFX NEGATIVE Normal Negative Blood, Urine Blood RFX NEGATIVE Normal Negative WBC, Urine Auto RFX 0 /HPF Normal 0-3 RBC, Urine Auto RFX 0 /HPF Normal 0-3 Bacteria, Urine Auto RFX 1+ High Negative Squam Epithelial Cell Ur Aurfx 1 /HPF Normal 0-6 Mucus, Urine RFX SMALL Normal Negative Hyaline Cast, Urine Auto RFX 0 /LPF Normal 0-1 CBC With Differential 02/28/[address] [facility] White Blood Count 14.3 10 High 4.0-10.0 Red Blood Count 3.62 10 Low 4.00-5.40 Hemoglobin 10.6 g/dL Low 12.0-15.5 Hematocrit 33.5 % Low 36.0-47.0 Mean Corpuscular Volume 92.5 fl Normal 80.0-96.0 Mean Corpuscular Hemoglobin 29.3 pg Normal 27.0-33.0 Mean Corpuscular HGB Conc 31.6 g/dL Low 32.0-36.5 Red Cell Distribution Width 14.6 % High 11.5-14.5 Platelet Count, Automated 167 10 Normal 150-450 Neutrophils % 68.0 % High 36.0-66.0 Lymph % 16.2 % Low 24.0-44.0 Ford % 9.8 % High 2.0-8.0 Eos % 1.5 % Normal 0.0-3.0 Baso % 0.4 % Normal 0.0-1.0 Immature Granulocyte % 4.1 % High 0-3.0 Nucleated Red Blood Cell % 0.0 % Normal 0-0 Neutrophils # 9.8 10 High 1.5-8.5 Lymph # 2.3 10 Normal 1.5-5.0 Ford # 1.4 10 High 0.0-0.8 Eos # 0.2 10 Normal 0.0-0.5 Baso # 0.1 10 Normal 0.0-0.2 Cardiac Marker Panel 02/28/[address] [facility] CPK Creatine Phosphokinase 70 U/L Normal 26-192 CK-MB Value Mass 1.3 NG/ML Normal <3.6 MB/CK Relative Index 1.86 Normal < Or =4 1 Troponin I < 0.02 NG/ML Normal < 0.10 2 Basic Metabolic Profile 02/28/[address] [facility] Glucose, Fasting 82 mg/dL Normal 70-100 Blood Urea Nitrogen 12 mg/dL Normal 7-18 Creatinine For GFR 0.36 mg/dL Low 0.55-1.30 Glomerular Filtration Rate > 60.0 Normal >60 3 Sodium Level 137 mEq/L Normal 136-145 Potassium Serum 4.0 mEq/L Normal 3.5-5.1 Chloride Level 108 mEq/L High 98-107 Carbon Dioxide Level 24 mEq/L Normal 21-32 Anion Gap 5 mEq/L Low 8-16 Calcium Level 8.9 mg/dL Normal 8.5-10.1 Liver Profile 02/28/[address] [facility] Ast/Sgot 112 U/L High 7-37 Alt/SGPT 212 U/L High 12-78 Alkaline Phosphatase 77 U/L Normal 45-117 Bilirubin,Total 0.1 mg/dL Low 0.2-1.0 Bilirubin,Direct < 0.1 mg/dL Normal 0.0-0.2 Total Protein 6.3 GM/DL Low 6.4-8.2 Albumin 2.8 GM/DL Low 3.2-5.2 Albumin/Globulin Ratio 0.8 Low 1.2-2.2 Laboratory test finding 02/28/[address] [facility] Lipase 109 U/L Normal 73-393 Basic Metabolic Panel 01/04/2021 [facility] Basic Metabolic Pane (SEE NOTE) 4 Sodium 134 mEq/L 134 - 153 Potassium 3.8 mEq/L 3.6 - 5.0 Chloride 105 mEq/L 98 - 107 Co2 20 mEq/L Low 22 - 30 Glucose 118 mg/dL High 70 - 99 BUN 9 mg/dL 7 - 21 Creatinine 0.4 mg/dL Low 0.7 - 1.5 BUN/Creat 23 8 - 27 Calcium 9.4 mg/dL 8.4 - 10.2 Anion Gap 9.0 mmol/L 8.0 - 16.0 Age 35 yrs Afr Amer GFR >60 mL/min Non-Aa GFR >60 mL/min 5 CBC W/Automated Diff 01/04/2021 [facility] CBC W/Automated Diff (SEE NOTE) 6 WBC 11.4 10^3/uL High 4.2 - 11.0 RBC 4.09 10^6/uL Low 4.20 - 5.40 Hemoglobin 12.1 g/dL 12.0 - 16.0 Hematocrit 35.7 % Low 37.0 - 47.0 MCV 87.3 fL 81.0 - 101 MCH 29.6 pg 27.0 - 34.0 MCHC 33.9 g/dL 31.0 - 36.0 RDW 15.2 % High 11.5 - 14.5 Platelets 137 10^3/uL Low 150 - 450 MPV 13.4 fL High 7.4 - 10.4 Neut 67.1 % 37.0 - 80.0 Lymph 20.5 % Low 25.0 - 40.0 Ford 10.0 % High 3.0 - 8.0 Eos 1.4 % 0.0 - 7.0 Baso 0.5 % 0.0 - 2.5 %Ig 0.5 % High 0.0 - 0.0 %NRBC 0.0 % 0.0 - 0.0 #Neut 7.63 10^3/uL High 2.00 - 6.90 #Lymph 2.33 10^3/uL 0.60 - 3.40 #Ford 1.14 10^3/uL High 0.00 - 0.90 #Eos 0.16 10^3/uL 0.00 - 0.70 #Baso 0.06 10^3/uL 0.00 - 0.20 #Ig 0.06 10^3/uL 0.00 - 0.10 #NRBC 0.00 10^3/uL 0.00 - 0.00 Manual Diff SEE BELOW Segs 81 % High 37 - 80 %Lymph 18 % Low 25 - 40 %Ford 1 % Low 3 - 8 RBC Morph NOT INDICATED Laboratory test finding 01/04/2021 [facility] l HCG Serum Quant 938504.0 mIU/mL 7 Urinalysis 01/04/2021 [facility] Urinalysis (SEE NOTE) 8, 9 Source R Color yellow Normal: Yellow Clarity hazy Normal: Clear Spec [place] 1.025 1.001 - 1.030 pH 6 5 - 9 Glucose NORM Normal: Negative Bilirubin NEG Normal: Negative Ketone 5 Abnormal Normal: Negative Protein NEG Normal: Negative Nitrite NEG Normal: Negative Blood 10 Abnormal Normal: Negative Leuk Est 25 Normal: Negative Urobilinogen NOR less than 1.0 mg/dL Microscopic See Below WBC 1 - 3 Normal: None Seen RBC 1 - 3 Normal: None Seen Epithelial MODERATE Abnormal Normal: None Seen Bacteria 1+ SMALL Normal: None Seen Mucous 1+ Normal: None Seen 1 DIAGNOSIS CRITERIA MMB ng/ml Relative Index (RI) NON-AMI < or = 5 N/A OGDEN ZONE > 5 < or = 4 AMI > 5 > 4 2 Troponin I Reference Interva l for [email or web address] LOCI: 99th Percentile= 0.00-0.045 ng/ml Risk Stratification: <= 0.10 ng/ml Decreased Risk for Adverse Clinical Events. 0.10-1.50 ng/ml Increased Risk for Adv erse Clinical Events. Evaluation of additional criterion and/or repeat testing in 2-6 hours is suggested to rule out myocardial damage. >= 1.50 ng/ml Indicative of Myocardial Injury. 3 Units are mL/min/1.73 m2 Chronic Kidney Disease Staging per NKF: Stage I & II GFR >=60 Normal to Mildly Decreased Stage III GFR 30-59 Moderately Decreased Stage IV GFR 15-29 Severely Decreased Stage V GFR <15 Very Little GFR Left ESRD GFR <15 on TRAVEL SERVICE CONSULTANT 4 BASIC METABOLIC PANEL 5 Male GFR Interprentation 20-49 yrs >60 mL/min Normal 50-59 yrs >56 mL/min Normal 60-69 yrs >49 mL/min Normal 70-79yrs >42 mL/min Normal 80 and above >35 mL/min Normal Female GFR Interpretation 20-39 yrs >60 mL/min Normal 40-49 yrs >58 mL/min Normal 50-59 yrs >51 mL/min Normal 60-69 yrs >45 mL/min Normal 70-79 yrs >39 mL/min Normal 80 and above >32 mL/min Normal 6 COMPLETE BLOOD COUNT 7 Interpretation: Less than 5 mU/mL: Negative 6-10 mU/mL: Borderline (suggest repeat i n 48 hours) >10: Positive Approx HCG range (mU/mL) Weeks post LMP 5.4-708 mU/mL 3-4 Weeks 217-57539 mU/mL 5-6 Weeks 4059-141527 mU/mL 7-8 Weeks 60154-677932 mU/mL 9-10 Weeks 67034-47168 mU/mL 12-14 Weeks 64697-05570 mU/mL 15-16 Weeks 8240-14968 mU/mL 17-18 Weeks 8 SOURCE: Clean Catch 9 URINALYSIS Procedures Date Code Description Status 01/07/2021 90804 Office/Outpatient Established Lo w MDM 20-29 Min Completed Medical Devices Description No Information Available Encounters Description No Information Available Assessments Date Code Description Provider 01/07/2021 O26.811 related exhaustion and fatigue, first trimester Mar Martinez PA-C Plan of Treatment 01/07/2021 - Mar Martinez PA-C* O26.811 related exhaustion and fatigue, first trimester* Comments:* She had recent ER visit for lightheadedness. Labs from ER reviewed, and it is normal. Probably it could be from decreased BP and fatigue secondary to . She was reassured that it is common in initially and her BP is WNL today. Recommended to drink enough water and Gatorade. Advised her to eat small frequent meals. She has an OB appointment next week. Go to ER for any severe or worsening symptoms. Functional Status Description No Information Available Mental Status Description No Information Available Referrals Description No Information Available
--- OUTSIDE RECORDS SUMMARY | 2021-08-02 08:43 | CCD | Continuity of Care Document ---
Author Author Nataly VILLALOBOS SOLDERING INSPECTOR Organization Unknown Address [address] [place] [address] Phone [phone] Care Team Providers Care Network Architect Manager Name Role Phone Mar Gonzales PA-C AUT[facility] [phone] [facility] Gastroenterology AUTM [phone] Problems Active Problems Provider Date Posttraumatic stress disorder Mar Gonzales PA-C Onset: 08/2019 Anxiety state Mar Gonzales PA-C Onset: 05/31/2020 Recurrent major depressive episodes Mar Gonzales PA-C Onse t: 05/31/2020 Attention-deficit hyperactivity disorder, unspecified type E donato Gonzales PA-C Onset: 05/31/2020 Social History Type Date [...] CPT Code Status Date Vaccine Lot # [id number] Given 05/31/2020 Influenza (>= 6 Months) P.F. Vaccine 9HT27 Vital Signs Date Vital Result Comment 07/06/2021 11:37am Body Temperature 97.5 F 01/07/2021 7:08am BP Systolic 118 mmHg BP Diastolic 78 mmHg Heart Rate 77 /min Body Temperature 98.0 F Respiratory Rate 16 /min O2 % BldC Oximetry 99 % Weight 117.50 lb Weight 53.298 kg Height 59 inches 4'11" BMI (Body Mass Index) 23.7 kg/m2 BSA (Body Surface Area) 1.47 m2 Results Test Acquired Date Facility Test Result H/L Range Note Ua W/ Reflex To Culture 02/28/2021 [facility] Appearance, Urine RFX CLEAR Normal Clear Color, Urine RFX STRAW Normal Yellow PH,Urine RFX 7.0 units Normal 5.0-9.0 Specific [place] Ur Auto RFX 1.010 Normal 1.002-1.035 Protein, [...] /LPF Normal 0-1 CBC With Differential 02/28/2021 [facility] White Blood Count 14.3 10 High [...] 36.0-66.0 Lymph % 16.2 % Low 24.0-44.0 [place] % 9.8 % High 2.0-8.0 Eos % 1.5 % Normal 0.0-3.0 Baso % 0.4 % Normal 0.0-1.0 Immature Granulocyte % 4.1 % High 0-3.0 Nucleated Red Blood Cell % 0.0 % Normal 0-0 Neutrophils # 9.8 10 High 1.5-8.5 Lymph # 2.3 10 Normal 1.5-5.0 [place] # 1.4 10 High 0.0-0.8 Eos # 0.2 10 Normal 0.0-0.5 Baso # 0.1 10 Normal 0.0-0.2 Cardiac Marker Panel 02/28/2021 [facility] CPK Creatine Phosphokinase 70 U/L Normal 26-192 CK-MB Value Mass 1.3 NG/ML Normal <3.6 MB/CK Relative Index 1.86 Normal < Or =4 1 Troponin I < 0.02 NG/ML Normal < 0.10 2 Basic Metabolic Profile 02/28/2021 [facility] Glucose, Fasting 82 mg/dL Normal 70-100 [...] 8.9 mg/dL Normal 8.5-10.1 Liver Profile 02/28/2021 [facility] Ast/Sgot 112 U/L High 7-37 Alt/SGPT 212 U/L High 12-78 Alkaline Phosphatase 77 U/L Normal 45-117 Bilirubin,Total 0.1 mg/dL Low 0.2-1.0 Bilirubin,Direct < 0.1 mg/dL Normal 0.0-0.2 Total Protein 6.3 GM/DL Low 6.4-8.2 Albumin 2.8 GM/DL Low 3.2-5.2 Albumin/Globulin Ratio 0.8 Low 1.2-2.2 Laboratory test finding 02/28/2021 [facility] Lipase 109 U/L Normal 73-393 Basic Metabolic Panel 01/04/2021 [facility] Basic Metabolic Pane (SEE NOTE) 4 [...] >60 mL/min 5 CBC W/Automated Diff 01/04/2021 [facility] CBC W/Automated Diff (SEE NOTE) 6 [...] Lymph 20.5 % Low 25.0 - 40.0 [place] 10.0 % High 3.0 - 8.0 Eos 1.4 % 0.0 - 7.0 Baso 0.5 % 0.0 - 2.5 %Ig 0.5 % High 0.0 - 0.0 %NRBC 0.0 % 0.0 - 0.0 #Neut 7.63 10^3/uL High 2.00 - 6.90 #Lymph 2.33 10^3/uL 0.60 - 3.40 #[place] 1.14 10^3/uL High 0.00 - 0.90 #Eos 0.16 10^3/uL 0.00 - 0.70 #Baso 0.06 10^3/uL 0.00 - 0.20 #Ig 0.06 10^3/uL 0.00 - 0.10 #NRBC 0.00 10^3/uL 0.00 - 0.00 Manual Diff SEE BELOW Segs 81 % High 37 - 80 %Lymph 18 % Low 25 - 40 %[place] 1 % Low 3 - 8 RBC Morph NOT INDICATED Laboratory test finding 01/04/2021 [facility] l HCG Serum Quant 165360.0 mIU/mL 7 Urinalysis 01/04/2021 [facility] Urinalysis (SEE NOTE) 8, 9 Source R Color yellow Normal: Yellow Clarity hazy Normal: Clear Spec [place] 1.025 1.001 - 1.030 pH 6 5 [...] 2 Troponin I Reference Interva l for [place] LOCI: 99th Percentile= 0.00-0.045 ng/ml Risk Stratification: [...] Little GFR Left ESRD GFR <15 on SUPPORT SERVICE TECH 4 BASIC METABOLIC PANEL 5 Male GFR [...] Weeks post LMP 5.4-708 mU/mL 3-4 Weeks 217-58361 mU/mL 5-6 Weeks 4059-070788 mU/mL 7-8 Weeks 28610-371370 mU/mL 9-10 Weeks 49597-76729 mU/mL 12-14 Weeks 74200-20554 mU/mL 15-16 Weeks 8240-72615 mU/mL 17-18 Weeks 8 SOURCE: Clean Catch 9 URINALYSIS Procedures Date Code Description Status 01/07/2021 61840 Office/Outpatient Established Lo w MDM 20-29 Min Completed Medical Devices Description No Information Available Encounters Description No Information Available Assessments Date Code Description Provider 01/07/2021 O26.811 related exhaustion and fatigue, first trimester Mar Gonzales PA-C Plan of Treatment 01/07/2021 - Mar Gonzales PA-C* O26.811 related exhaustion and fatigue, first [...]
--- OUTSIDE RECORDS SUMMARY | 2021-08-02 08:44 | CCD ---
Author Author [facility] Organization [facility] Address Unknown Phone Unavailable Care Team Providers Care Glass Bulb Silverer Name Role Phone Gonzales, M Mar PA-C Unavailable Unavailable Gonzales, M Mar PA-C Unavailable Unavailable Gonzales, M Mar PA-C Unavailable Unavailable Gonzales, M Mar PA-C Unavailable Unavailable Gonzales, M Mar PA-C Unavailable Unavailable Gonzales, M Mar PA-C Unavailable Unavailable Gonzales, M Mar PA-C Unavailable Unavailable Gonzales, M Mar PA-C Unavailable Unavailable Gonzales, M Mar PA-C Unavailable Unavailable Gonzales, M Mar PA-C Unavailable Unavailable Gonzales, M Mar PA-C Unavailable Unavailable Gonzales, M Mar PA-C Unavailable Unavailable Gonzales, M Mar PA-C Unavailable Unavailable Gonzales, M Mar PA-C Unavailable Unavailable Gonzales, M Mar PA-C Unavailable Unavailable Gonzales, M Mar PA-C Unavailable Unavailable Gonzales, M Mar PA-C Unavailable Unavailable Gonzales, M Mar PA-C Unavailable Unavailable Gonzales, M Mar PA-C Unavailable Unavailable Gonzales, M Mra PA-C Unavailable Unavailable Gonzales, M Mar PA-C Unavailable Unavailable Gonzales, M Mar PA-C Unavailable Unavailable Gonzales, M Mar PA-C Unavailable Unavailable Gonzales, M Mar PA-C Unavailable Unavailable Gonzales, M Mar PA-C Unavailable Unavailable Gonzales, M Mar PA-C Unavailable Unavailable Gonzales, M Mar PA-C Unavailable Unavailable Gonzales, M Mar PA-C Unavailable Unavailable Gonzales, M Mar PA-C Unavailable Unavailable Gonzales, M Mar PA-C Unavailable Unavailable Gonzales, M Mar PA-C Unavailable Unavailable Gonzales, M Mar PA-C Unavailable Unavailable Gonzales, M Mar PA-C Unavailable Unavailable Gonzales, M Mar PA-C Unavailable Unavailable Gonzales, M Mar PA-C Unavailable Unavailable Gonzales, M Mar PA-C Unavailable Unavailable Gonzales, M Mar PA-C Unavailable Unavailable Gonzales, M Mar PA-C Unavailable Unavailable Perico Estrada MD Unavailable Unavailable Perico Estrada MD Unavailable Unavailable Perico Estrada MD Unavailable Unavailable Perico Estrada MD Unavailable Unavailable Perico Estrada MD Unavailable Unavailable Perico Estrada MD Unavailable Unavailable Winston, M Barratt PA Unavailable Unavailable Winston, M Barratt PA Unavailable Unavailable Winston, M Barratt PA Unavailable Unavailable Winston, M Barratt PA Unavailable Unavailable Winston, M Barratt PA Unavailable Unavailable Winston, M Barratt PA Unavailable Unavailable Winston, M Barratt PA Unavailable Unavailable Winston, M Barratt PA Unavailable Unavailable Winston, M Barratt PA Unavailable Unavailable Winston, M Barratt PA Unavailable Unavailable Winston, M Barratt PA Unavailable Unavailable Winston, M Barratt PA Unavailable Unavailable Winston, M Barratt PA Unavailable Unavailable Winston, M Barratt PA Unavailable Unavailable Winston, M Barratt PA Unavailable Unavailable Winston, M Barratt PA Unavailable Unavailable Winston, M Barratt PA Unavailable Unavailable Winston, M Barratt PA Unavailable Unavailable Winston, M Barratt PA Unavailable Unavailable Winston, M Barratt PA Unavailable Unavailable Winston, M Barratt PA Unavailable Unavailable Winston, M Barratt PA Unavailable Unavailable Winston, M Barratt PA Unavailable Unavailable Winston, M Barratt PA Unavailable Unavailable Winston, M Barratt PA Unavailable Unavailable Winston, M Barratt PA Unavailable Unavailable Winston, M Barratt PA Unavailable Unavailable Winston, M Barratt PA Unavailable Unavailable Winston, M Barratt PA Unavailable Unavailable Lisa OLIVEROS Unavailable Unavailable ROSSI Eden CARBON PAPER COATING MACHINE SETTER Unavailable Unavailabl ROSSI Greenberg CARBON PAPER COATING MACHINE SETTER Unavailable Unavailabl e [place], ROSSI ARACELI CARBON PAPER COATING MACHINE SETTER Unavailable Unavailabl e [place], ROSSI ARACELI CARBON PAPER COATING MACHINE SETTER Unavailable Unavailabl e [place], ROSSI ARACELI CARBON PAPER COATING MACHINE SETTER Unavailable Unavailabl e Meek, ROSSI ARACELI CARBON PAPER COATING MACHINE SETTER Unavailable Unavailabl e Meek, ROSSI ARACELI CARBON PAPER COATING MACHINE SETTER Unavailable Unavailabl e Meek, ROSSI ARACELI CARBON PAPER COATING MACHINE SETTER Unavailable Unavailabl e [place], ROSSI ARACELI CARBON PAPER COATING MACHINE SETTER Unavailable Unavailabl e Meek, ROSSI ARACELI CARBON PAPER COATING MACHINE SETTER Unavailable Unavailabl e Meek, ROSSI ARCAELI CARBON PAPER COATING MACHINE SETTER Unavailable Unavailabl e [place], ROSSI ARACELI CARBON PAPER COATING MACHINE SETTER Unavailable Unavailabl e [place], ROSSI ARACELI CARBON PAPER COATING MACHINE SETTER Unavailable Unavailabl e [place], ROSSI ARACELI CARBON PAPER COATING MACHINE SETTER Unavailable Unavailabl e Meek, ROSSI ARACELI CARBON PAPER COATING MACHINE SETTER Unavailable Unavailabl e [place], ROSSI ARACELI CARBON PAPER COATING MACHINE SETTER Unavailable Unavailabl e [place], ROSSI ARACELI CARBON PAPER COATING MACHINE SETTER Unavailable Unavailabl e [place], ROSSI ARACELI CARBON PAPER COATING MACHINE SETTER Unavailable Unavailabl CESAR Conway Unavailable Unavailable Gonzales, M Mar PA-C Unavailable Unavailable Gonzales, M Mar PA-C Unavailable Unavailable Gonzales, M Mar PA-C Unavailable Unavailable Gonzales, M Mar PA-C Unavailable Unavailable Gonzales, M Mar PA-C Unavailable Unavailable Gonzales, M Mar PA-C Unavailable Unavailable Gonzales, M Mar PA-C Unavailable Unavailable Gonzales, M Mar PA-C Unavailable Unavailable Gonzales, M Mar PA-C Unavailable Unavailable Gonzales, M Mar PA-C Unavailable Unavailable Gonzales, M Mar PA-C Unavailable Unavailable Gonzales, M Mar PA-C Unavailable Unavailable Gonzales, M Mar PA-C Unavailable Unavailable Gonzales, M Mar PA-C Unavailable Unavailable Gonzales, M Mar PA-C Unavailable Unavailable Gonzales, M Amr PA-C Unavailable Unavailable Gonzales, M Mar PA-C Unavailable Unavailable Gonzales, M Mar PA-C Unavailable Unavailable Gonzales, M Mar PA-C Unavailable Unavailable Gonzales, M Mar PA-C Unavailable Unavailable Gonzales, M Mar PA-C Unavailable Unavailable Gonzales, M Mar PA-C Unavailable Unavailable Gonzales, M Mar PA-C Unavailable Unavailable Gonzales, M Mar PA-C Unavailable Unavailable Gonzales, M Mar PA-C Unavailable Unavailable Gonzales, M Mar PA-C Unavailable Unavailable Gonzales, M Mar PA-C Unavailable Unavailable Gonzales, M Mar PA-C Unavailable Unavailable Gonzales, M Mar PA-C Unavailable Unavailable Gonzales, M Mar PA-C Unavailable Unavailable Gonzales, M Mar PA-C Unavailable Unavailable Gonzales, M Mar PA-C Unavailable Unavailable Gonzales, M Mar PA-C Unavailable Unavailable Gonzales, M Mar PA-C Unavailable Unavailable Gonzales, M Mar PA-C Unavailable Unavailable Gonzales, M Mar PA-C Unavailable Unavailable Gonzales, M Mar PA-C Unavailable Unavailable Gonzales, M Mar PA-C Unavailable Unavailable BUMBANAC, A STAR CODE AND TEST CLERK Unavailable Unavailable B[place]NA[place], A STAR CODE AND TEST CLERK Unavailable Unavailable BUM[place]NAC, A STAR CODE AND TEST CLERK Unavailable Unavailable BUM[place], A STAR CODE AND TEST CLERK Unavailable Unavailable BUM[place]NAC, A STAR CODE AND TEST CLERK Unavailable Unavailable BUMBANAC, A STAR CODE AND TEST CLERK Unavailable Unavailable BUM[place], A STAR CODE AND TEST CLERK Unavailable Unavailable BUM[place]NAC, A STAR CODE AND TEST CLERK Unavailable Unavailable B[place], A STAR CODE AND TEST CLERK Unavailable Unavailable [place], A STAR CODE AND TEST CLERK Unavailable Unavailable [place], A STAR CODE AND TEST CLERK Unavailable Unavailable [place], A STAR CODE AND TEST CLERK Unavailable Unavailable [place], A STAR CODE AND TEST CLERK Unavailable Unavailable [place], A STAR CODE AND TEST CLERK Unavailable Unavailable [place], A STAR CODE AND TEST CLERK Unavailable Unavailable [place], A STAR CODE AND TEST CLERK Unavailable Unavailable [place], A STAR CODE AND TEST CLERK Unavailable Unavailable [place], A STAR CODE AND TEST CLERK Unavailable Unavailable [place], A STAR CODE AND TEST CLERK Unavailable Unavailable [place], A STAR CODE AND TEST CLERK Unavailable Unavailable [place], A STAR CODE AND TEST CLERK Unavailable Unavailable [place], A STAR CODE AND TEST CLERK Unavailable Unavailable [place], A STAR CODE AND TEST CLERK Unavailable Unavailable [place], A STAR CODE AND TEST CLERK Unavailable Unavailable [place], A STAR CODE AND TEST CLERK Unavailable Unavailable B[place], A STAR CODE AND TEST CLERK Unavailable Unavailable [place], A STAR CODE AND TEST CLERK Unavailable Unavailable [place], A STAR CODE AND TEST CLERK Unavailable Unavailable B[place], A STAR CODE AND TEST CLERK Unavailable Unavailable [place], A STAR CODE AND TEST CLERK Unavailable Unavailable [place], A STAR CODE AND TEST CLERK Unavailable Unavailable Juan Galindo Unavailable Juan Galindo Unavailable Re-disclosure Warning The records that you are about to access may contain information from federally-assisted alcohol or drug abuse programs. If such information is present, then the following federally mandated warning applies: This information has been disclosed to you from records protected by federal confidentiality rules (42 CFR part 2). The federal rules prohibit you from making any further disclosure of this information unless further disclosure is expressly permitted by the written consent of the person to whom it pertains or as otherwise permitted by 42 CFR part 2. A general authorization for the release of medical or other information is NOT sufficient for this purpose. The Federal rules restrict any use of the information to criminally investigate or prosecute any alcohol or drug abuse patient.The records that you are about to access may contain highly sensitive health information, the redisclosure of which is protected by Article 27-F of the [facility] Public Health law. If you continue you may have access to information: Regarding HIV / AIDS; Provided by facilities licensed or operated by the [facility] Office of Mental Health; or Provided by the [facility] Office for People With Developmental Disabilities. If such information is present, then the following [facility] mandated warning applies: This information has been disclosed to you from confidential records which are protected by state law. State law prohibits you from making any further disclosure of this information without the specific written consent of the person to whom it pertains, or as otherwise permitted by law. Any unauthorized further disclosure in violation of state law may result in a fine or shelter sentence or both. A general authorization for the release of medical or other information is NOT sufficient authorization for further disc losure. Family History Family Member Name Family Member Gender Family Member Status Date o f Status Description Data Source(s) Unknown Unknown Problem [facility], ) Encounters Encounter Providers Location Date Indications Data Source(s ) Outpatient Attender: ARACELI Eden FNPConsultant: Mar Gonzales PA-C 07/06/2021 11:34:00 AM EDT - 07/06/2021 11:34:00 AM T [facility] Outpatient Attender: Juan Galindo 04/30/2021 01:00:00 PM E [facility] Outpatient Attender: Juan Galindo 04/19/2021 03:00:00 PM [facility] Outpatient Attender: Juan Galindo 03/26/2021 03:00:00 PM E [facility] Outpatient Attender: Juan Galindo 03/21/2021 05:00:00 PM E [facility] Outpatient Attender: Juan Galindo 03/07/2021 01:00:00 PM E [facility] Outpatient Attender: Juan Galindo 02/14/2021 03:00:00 PM E [facility] Outpatient Attender: Juan Galindo 01/29/2021 03:30:00 PM E [facility] Outpatient Attender: Juan Vidalronnie 01/24/2021 11:00:00 AM E [facility] Outpatient Attender: Mar KIRKCConsultant: Mar lr PA-C 01/07/2021 07:03:00 AM EDT - 01/07/2021 07:03:00 AM EDT [facility] Emergency Attender: Perico Estrada MDConsultant: Mar Garcia 01/04/2021 12:04:00 PM EDT - 01/04/2021 02:29:00 PM EDT [facility] Patient discharged. Outpatient Attender: Juan Galindo 12/26/2020 02:00:00 PM E [facility] Outpatient Attender: JUAN LIVANRONNIE 12/11/2020 01:00:00 PM E [facility] Outpatient Attender: Mar FERROonsultant: Mar lr PA-C 11/29/2020 03:05:00 PM EDT - 11/29/2020 03:05:00 PM EDT [facility] Outpatient Attender: Mar Gonzales PA-C Family Practice [facility] Attender: JUAN GALINDO 11/27/2020 01:00:00 PM E [facility] Outpatient Attender: Mar GARDNER ttender: ELIESER HALL NPConsultant: Mar Gonzales PA-C 11/22/2020 10:54:00 AM EDT - 11/22/2020 10:54: 00 AM EDT [facility] Outpatient Attender: JUAN GALINDO 10/17/2020 03:00:00 PM [facility] Outpatient Attender: JUAN GALINDO 09/19/2020 03:00:00 PM [facility] Outpatient Attender: ELIESER HALL NPConsultant: Mar Mckinney am PA-C 09/07/2020 11:49:00 AM EST - 09/07/2020 11:49:00 AM EST [facility] Outpatient Attender: Diane HYMAN Physical Therapy 12:15:00 PM EST [facility] ([facility]) Outpatient Attender: JUAN GALINDO 08/22/2020 03:00:00 PM [facility] Office Visit Attender: Diane HYMAN Physical Therapy 10:15:00 AM EST [facility] ([facility]) Outpatient Attender: JUAN GALINDO 08/02/2020 02:00:00 PM [facility] Outpatient Attender: JUAN GALINDO 07/20/2020 02:00:00 PM [facility] Outpatient Attender: Diane HYMAN Physical Therapy 09:45:00 AM EST [facility] ([facility]) OFFICE OUTPATIENT NEW 30 MINUTES Attender: Diane HYMAN Ph ysical Therapy 06/27/2020 10:45:00 AM EDT [facility] ([facility]) Outpatient Attender: JUAN GALINDO 06/08/2020 02:00:00 PM [facility] Outpatient Attender: JUAN GALINDO 05/23/2020 01:00:00 PM [facility] Outpatient Attender: EARLINE OLIVEROS 05/21/2020 11:01:00 AM [facility] Immunizations Vaccine Date Status Description Data Source(s) COVID-19 VACCINE Moderna 02/18/2021 12:00:00 AM EDT completed [facility] Vaccine Series Complete: YESThis Data wa s Submitted to [facility] Via [employer]. COVID-19 VACCINE Moderna 01/19/2021 12:00:00 AM EDT completed [facility] Vaccine Series Complete: NOThis Data was Submitted to [facility] [employer]. Medications Medication Brand Name Start Date Product Form Dose Route Admi nistrative Instructions Pharmacy Instructions Status Indications Reaction Description Data Source(s) 500 mg 07/27/2021 12:00:00 AM EST capsule 30 TAKE ONE CAPSULE BY MOUTH EVERY 8 HOURS UNTIL GONE TAKE ONE CAPSULE BY MOUTH EVERY 8 HOURS UNTIL GONE [facility] NITROFURANTOIN, MACROCRYSTALS 25 MG / Ni trofurantoin, Monohydrate 75 MG Oral Capsule 100 mg NITROFURANTOIN MONOHYD/M-CRYST 05/15/2021 12:00:00 AM EDT ca psule 14 TAKE ONE CAPSULE BY MOUTH TWICE A DAY WITH FOOD FOR 7 DAYS TAKE ONE CAPSULE BY MOUTH TWICE A DAY WITH FOOD FOR 7 DAYS SOLD: 05/15/2021 [facility] 125 mg 11/18/2020 12:00:00 AM EDT capsule 40 TAKE ONE CAPSULE BY MOUTH FOUR TIMES A DAY TAKE ONE CAPSULE BY MOUTH FOUR TIMES A DAY SOLD: 11/18/2020 [facility] Ondansetron 4 MG Disintegrating Oral Tablet ONDANSETRON 11/18/2020 12:00:00 AM EDT tablet,disintegrating 8 DISSOLVE O NE TABLET ON TONGUE EVERY 6 TO 8 HOURS NEEDED FOR NAUSEA/VOMITING DISSOLVE ONE TABLET ON TONGUE EVERY 6 TO 8 HOURS NEEDED FOR NAUSEA/VOMITING SOLD: 11/18/2020 [facility] 50 mg 09/04/2020 12:00:00 AM EST tablet 10 TAKE TWO TABLETS BY MOUTH ONCE A DAY, ON DAYS 5-9 OF CYCLE TAKE TWO TABLETS BY MOUTH ONCE A DAY, ON DAYS 5-9 OF CYCLE SOLD: 10/13/2020 [facility] 50 mg 09/04/2020 12:00:00 AM EST tablet 10 TAKE TWO TABLETS BY MOUTH ONCE A DAY, ON DAYS 5-9 OF CYCLE TAKE TWO TABLETS BY MOUTH ONCE A DAY, ON DAYS 5-9 OF CYCLE SOLD: 09/04/2020 [facility] 5-325 mg 06/22/2020 12:00:00 AM EDT tablet 20 TAKE 1-2 TABLETS BY MOUTH EVERY 4 TO 6 HOURS NEEDED FOR PAIN MAX DAILY DOSE = 6 TABLETS TAKE 1-2 TABLETS BY MOUTH EVERY 4 TO 6 HOURS NEEDED FOR PAIN MAX DAILY DOSE = 6 TABLETS SOLD: 06/23/2020 [facility] 4 mg 06/04/2020 12:00:00 AM EDT tablet,disintegrating 2 9 DISSOLVE ONE TABLET ON TONGUE EVERY 6 HOURS NEEDED FOR NAUSEA MAXIMUM DAILY DOSE = 4 DISSOLVE ONE TABLET ON TONGUE EVERY 6 HOURS NEEDED FOR NAUSEA MAXIMUM DAILY DOSE = 4 SOLD: 06/06/2020 [facility] 50 mg 02/15/2020 12:00:00 AM EDT tablet 5 TAKE 1 TABLET BY MOUTH ONCE A DAY DAYS 5-9 TAKE 1 TABLET BY MOUTH ONCE A DAY DAYS 5-9 SOLD: 07/09/2020 [facility] Insurance Providers Payer name Policy type / Coverage type Policy ID Covered democrat ID Covered democrat's relationship to dias Policy Dias Plan Information [employer] [id number] S [id number] [employer] [id number] S [id number] SELF PAY MVP SELECT [id number] SP [id number] MEDICAID [facility] [id number] SP [id number] MVP SELECT [id number] SP [id number] MVP SELECT SP SELF PAY SELF PAY SELF PAY SELF PAY MVP SELECT [id number] SP [id number] MVP I [id number] Self [id number] MVP H [id number] Self [id number] [employer] I [id number] Self [id number] MVP I [id number] Self [id number] MVP MCDHMO [id number] SP [id number] MEDICAID [id number] SP [id number] MVP MCDHMO [id number] SP [id number] MVP MDCD HMO [facility] [id number] 18 [id number] MVP MDCD HM [id number] 18 [id number] MVP HEALTHCARE HERNANDEZ [id number] S [id number] MVP MEDICAID HMO -PHYSICIAN HM [id number] 18 [id number] MVP HEALTH CARE O [id number] S [id number] MVP HEALTH CARE O [id number] S [id number] Medicaid - Recognition PRO [id number] Medica id [id number] MVP [id number] Commercial Insurance [id number] MVP HEALTH CARE SP MVP [facility] HMO [id number] SP [id number] [employer] [id number] S [id number] MVP Medicaid Health Maintenance Organization (HMO) [id number] 0 [id number] Self [id number] [employer] STRATEGIES [id number] S [id number] MVP Medicaid Health Maintenance Organization [place] [id number] 0 [id number] Self [id number] Problems, Conditions, and Diagnoses Code Display Name Description Problem Type Effective Dates Data Source(s) Z23 Encounter for immunization Encounter for immunization Diagnosis 07/06/2021 11:34:00 AM [facility] Z3A.00 Weeks of gestation of not spec ified WEEKS OF GESTATION OF NOT SPECIFIED Diagnosis 04/30/2021 [facility] F41.1 Generalized anxiety disorder GENERALIZED ANXIETY DISOR JEANINE Diagnosis 04/30/2021 01:00:00 [facility] F32.9 Major depressive disorder, single episod e, unspecified MAJOR DEPRESSIVE DISORDER, SINGLE EPISODE, UNSPECI Diagnosis 04/30/2021 01:00:00 PM [facility] 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 Diagnosis 04/30/2021 01 :00:00 PM [facility] F43.10 Post-traumatic stress disorder, unspecif ied POST-TRAUMATIC STRESS DISORDER, UNSPECIFIED Diagnosis 04/30/2021 01:00:00 PM [facility] nixon O99.340 Other mental disorders complicating preg moon, unspecified trimester OTH MENTAL DISORDERS COMPLICATING , UNSP TRIMESTER Diagnosis 04/30/2021 01:00:00 PM [facility] Z3A.21 21 weeks gestation of 21 WEEKS GESTATI ON OF Diagnosis 03/26/2021 03:00:00 PM [facility] O99.342 Other mental disorders complicating preg moon, second trimester OTH MENTAL DISORDERS COMP , SECOND TRIMESTER Diagnosis 03/01 03:00:00 PM [facility] [id number] Personal history of nicotine dependence Personal history of nicotine dependence Diagnosis 01/04/2021 12:04:00 PM [facility] Z3A10 10 weeks gestation of 10 weeks gestation of Diagnosis 01/04/2021 12:04:00 PM [facility] [id number] related exhaustion and fatigue , first trimester related exhaustion and fatigue, first trimester Diagnosis 2020 12:04:00 PM EDT [facility] [id number] Other specified related condit ions, first trimester Other specified related conditions, first trimester Diagnosis 01/04/2021 12:04:00 PM EDT [facility] F339 Major depressive disorder, recurrent, un specified Major depressive disorder, recurrent, unspecified Diagnosis 11/29/2020 03:05:00 PM EDT [facility] F419 Anxiety disorder, unspecified Anxiety disorder, unspec ified Diagnosis 11/29/2020 03:05:00 PM EDT [facility] F4310 Post-traumatic stress disorder, unspecif ied Post-traumatic stress disorder, unspecified Diagnosis 11/29/2020 03:05:00 PM EDT [facility] F909 Attention-deficit hyperactivity disorder , unspecified type Attention- deficit hyperactivity disorder, unspecified type Diagnosis 11/29 03:05:00 PM EDT [facility] A0472 Enterocolitis due to Clostridium diffici le, not specified as recurrent Enterocolitis due to Clostridium difficile, not specified as recurrent Diagnosis 11/29/2020 03:05:00 PM EDT [facility] [id number] Fall (on) (from) unspecified stairs and steps, initial encounter Fall (on) (from) unspecified stairs and steps, initial encounter Diagnosis 09/07/2020 11:49:00 AM [facility] [id number] Sprain of other ligament of left ankle, initial encounter Sprain of other ligament of left ankle, initial encounter Diagnosis 2020 11:49:00 AM [facility] Surgeries/Procedures Procedure Description Date Indications Data Source(s) OFFICE OUTPATIENT VISIT 15 MINUTES 01/07/2021 12:00:00 AM EDT [facility] ([facility]) OFFICE OUTPATIENT VISIT 15 MINUTES 11/29/2020 12:00:00 AM EDT [facility] ([facility]) OFFICE OUTPATIENT VISIT 15 MINUTES 11/22/2020 12:00:00 AM EDT [facility]) OFFICE OUTPATIENT VISIT 15 MINUTES 09/07/2020 12:00:00 AM [facility] RADEX FINGR MINIMUM 2 VIEWS 08/03/2020 12:00:00 AM EST [facility] ([facility]) RADEX FINGR MINIMUM 2 VIEWS 07/09/2020 12:00:00 AM EST [facility] ([facility]) Results ID Date Data Source [id number] 02/28/2021 03:23:00 PM EDT [facility] ([facility]) Name Value Range Interpretation Code Description Data Ruby rce(s) Supporting Document(s) Appearance, Urine RFX Laboratory test result Nor mal (applies to non-numeric results) [facility] ([facility]) Color, Urine RFX Laboratory test result Normal ( applies to non-numeric results) [facility] Protein, Urine Auto RFX Laboratory test result N ormal (applies to non-numeric results) [facility] ([facility]) Specific [place] Ur Auto RFX 1.010 1.002-1.035 Nor mal (applies to non-numeric results) [facility] ([facility]) PH,Urine RFX 7.0 units 5.0-9.0 Normal (applies to non-numeric res ults) [facility] Ketone, Urine Auto RFX Laboratory test result No rmal (applies to non-numeric results) [facility] ([facility]) Glucose, Urine (Ua) Auto RFX Laboratory test result Normal (applies to non- numeric results) [facility] ([facility]) Urobilinogen, Urine Auto RFX 0.2 mg/dL 0.0-2.0 Nor mal (applies to non-numeric results) [facility] Nitrite, Urine Auto RFX Laboratory test result N ormal (applies to non-numeric results) [facility] ([facility]) Bilirubin, Urine Auto RFX Laboratory test result Normal (applies to non- numeric results) [facility] ([facility]) Leukocyte Esterase Ur Auto RFX Laboratory test result Normal (applies to non- numeric results) [facility] ([facility]) Blood, Urine Blood RFX Laboratory test result No rmal (applies to non-numeric results) [facility] ([facility]) Bacteria, Urine Auto RFX Laboratory test result Above high normal [facility] ([facility]) RBC, Urine Auto RFX 0 /HPF 0-3 Normal (applies to non-nume collette results) [facility] ([facility]) WBC, Urine Auto RFX 0 /HPF 0-3 Normal (applies to non-nume collette results) [facility] ([facility]) Squam Epithelial Cell Ur Aurfx 1 /HPF 0-6 N ormal (applies to non-numeric results) [facility] Mucus, Urine RFX Laboratory test result Normal ( applies to non-numeric results) [facility] ([facility]) Hyaline Cast, Urine Auto RFX 0 /LPF 0-1 Normal (appl ies to non-numeric results) [facility] ([facility]) ID Date Data Source [id number] 02/28/2021 11:37:00 AM EDT [facility] ([facility]) Name Value Range Interpretation Code Description Data Ruby rce(s) Supporting Document(s) Lipase [Enzymatic activity/volume] in Serum or Plasma 109 U/L 73-393 Normal (applies to non-numeric results) [facility] ([facility]) ID Date Data Source [id number] 02/28/2021 11:37:00 AM EDT [facility] Name Value Range Interpretation Code Description Data Ruby rce(s) Supporting Document(s) Alkaline Phosphatase 77 U/L 45-117 Normal (applies to non-num rj results) [facility] ([facility]) Alt/SGPT 212 U/L 12-78 Above high normal [facility] ([facility]) Ast/Sgot 112 U/L 7-37 Above high normal [facility] ([facility]) Bilirubin,Total 0.1 mg/dL 0.2-1.0 Below low normal [facility] ([facility]) Bilirubin,Direct Laboratory test result 0.0-0.2 Normal ( applies to non-numeric results) [facility] ([facility]) Albumin 2.8 GM/DL 3.2-5.2 Below low normal [facility] Total Protein 6.3 GM/DL 6.4-8.2 Below low normal [facility] ([facility]) Albumin/Globulin Ratio 0.8 1.2-2.2 Below low normal [facility] ID Date Data Source [id number] 02/28/2021 11:37:00 AM EDT [facility] ([facility]) Name Value Range Interpretation Code Description Data Ruby rce(s) Supporting Document(s) Glucose, Fasting 82 mg/dL 70-100 Normal (applies to non-numeric results) [facility] ([facility]) Creatinine For GFR 0.36 mg/dL 0.55-1.30 Below low normal [facility] Blood Urea Nitrogen 12 mg/dL 7-18 Normal (applies to non-nume collette results) [facility] Glomerular Filtration Rate Laboratory test result Normal (applies to non- numeric results) [facility] ([facility]) <content>Units are mL/min/1.73 m2</content>
<content></content>
<content>Chronic Kidney Disease Staging per NKF:</content>
<content></content>
<content>Stage I & II GFR >=60 Normal to Mildly Decreased</content>
<content>Stage III GFR 30-59 Moderately Decreased</content>
<content>Stage IV GFR 15-29 Severely Decreased</content>
<content>Stage V GFR <15 Very Little GFR Left</content>
<content>ESRD GFR <15 on SLIP DUMPER</content>
<content></content> Sodium Level 137 meq/L 136-145 Normal (applies to non-numeric res ults) [facility] ([facility]) Potassium Serum 4.0 meq/L 3.5-5.1 Normal (applies to non-numeric results) [facility] ([facility]) Chloride Level 108 meq/L 98-107 Above high normal [facility] ([facility]) Anion Gap 5 meq/L 8-16 Below low normal [facility]) Carbon Dioxide Level 24 meq/L 21-32 Normal (applies to non-num rj results) [facility] Calcium Level 8.9 mg/dL 8.5-10.1 Normal (applies to non-numeric re sults) [facility] ([facility]) ID Date Data Source [id number] 02/28/2021 11:37:00 AM EDT [facility] ([facility]) Name Value Range Interpretation Code Description Data Ruby rce(s) Supporting Document(s) CK-MB Value Mass 1.3 ng/mL Normal (applies to non-numeric results) [facility] ([facility]) MB/CK Relative Index 1.86 Normal (applies to non-num rj results) [facility] ([facility]) <content>DIAGNOSIS CRITERIA</content>
<content>MMB ng/ml Relative Index (RI)</content>
<content>NON-AMI < or = 5 N/A</content>
<content>OGDEN ZONE > 5 < or = 4</content>
<content>AMI > 5 > 4</content>
<content></content> CPK Creatine Phosphokinase 70 U/L 26-192 Christa l (applies to non-numeric results) [facility] ([facility]) Troponin I Laboratory test result Normal (applies to non-n umeric results) [facility]) <content>Troponin I Reference Interval f or Siemens [place] LOCI:</content>
<content></content>
<content>99th Percentile= 0.00-0.045 ng/ml</content>
<content></content>
<content>Risk Stratification:</content>
<content><= 0.10 ng/ml Decreased Risk for Adverse Clinical</content>
<content>Events.</content>
<content>0.10-1.50 ng/ml Increased Risk for Adverse Clinical</content>
<content>Events. Evaluation of additional</content>
<content>criterion and/or repeat testing in 2-6</content>
<content>hours is suggested to rule out myocardial</content>
<content>damage.</content>
<content>>= 1.50 ng/ml Indicative of Myocardial Injury.</content>
<content></content> ID Date Data Source [id number] 02/28/2021 11:37:00 AM EDT [facility] ([facility]) Name Value Range Interpretation Code Description Data Ruby rce(s) Supporting Document(s) White Blood Count 14.3 10 4.0-10.0 Above high normal [facility] ([facility]) Red Blood Count 3.62 10 4.00-5.40 Below low normal [facility] ([facility]) Mean Corpuscular Volume 92.5 fl 80.0-96.0 Normal ( applies to non-numeric results) [facility] ([facility]) Hematocrit 33.5 % 36.0-47.0 Below low normal [facility] ( [facility]) Hemoglobin 10.6 g/dL 12.0-15.5 Below low normal [facility] ( [facility]) Mean Corpuscular Hemoglobin 29.3 pg 27.0-33.0 Norm al (applies to non-numeric results) [facility] ([facility]) Mean Corpuscular HGB Conc 31.6 g/dL 32.0-36.5 Below low normal [facility] ([facility]) Red Cell Distribution Width 14.6 % 11.5-14.5 Above high normal [facility] ([facility]) Platelet Count, Automated 167 10 150-450 Normal (applies to non-numeric results) [facility] ([facility]) Lymph % 16.2 % 24.0-44.0 Below low normal [facility] ( [facility]) Neutrophils % 68.0 % 36.0-66.0 Above high normal [facility] ([facility]) [place] % 9.8 % 2.0-8.0 Above high normal [facility] ([facility]) Baso % 0.4 % 0.0-1.0 Normal (applies to non-numeric resul ts) [facility] ([facility]) Eos % 1.5 % 0.0-3.0 Normal (applies to non-numeric resul ts) [facility] ([facility]) Immature Granulocyte % 4.1 % 0-3.0 Above high normal [facility] ([facility]) Nucleated Red Blood Cell % 0.0 % 0-0 Normal (applies to n on-numeric results) [facility] ([facility]) Neutrophils # 9.8 10 1.5-8.5 Above high normal [facility] ([facility]) [place] # 1.4 10 0.0-0.8 Above high normal [facility] ([facility]) Lymph # 2.3 10 1.5-5.0 Normal (applies to non-numeric resul ts) [facility] ([facility]) Eos # 0.2 10 0.0-0.5 Normal (applies to non-numeric resul ts) [facility] ([facility]) Baso # 0.1 10 0.0-0.2 Normal (applies to non-numeric resul ts) [facility] ([facility]) ID Date Data Source [id number] 01/04/2021 12:04:00 PM EDT [facility] 1 OrderSheet [facility] Emergency Department [address] [place] [address] Phone #: ext- [phone] 01/04/2021 12:03 Patient: RAMON SMITH Sex: F : 1985 Age: 35yWEIGHT:54.4 kg (S) HEIGHT:59 inches (S) BMI:24.2ALLERGIES: Altazine Moisture Relief, ErythromycinCHIEF COMPLAINT: dizzinessDIAGNOSIS: Asthenia, Patient currently LAB ORDERSOrder Description Priority Entered Acknowledged InitialedBMP STAT 12:28 01/04/2021 12:39 Sean Washington Jack ; Moises VelázquezCBC w Diff STAT 12:28 01/04/2021 12:39 Sean Washington Jack ; Moises VelázquezBeta- HCG, Quant STAT 12:28 01/04/2021 12:39 Barnhart,Serum Perico Estrada ; Moises VelázuqezUrinalysis (Clean STAT 12:28 01/04/2021 12:39 Padmini,Catch) Perico Estrada ; Moises VelázquezDIAGNOSTIC STUDY ORDERSOrder Description Priority Entered Acknowledged InitialedMEDICA TION/IV/DRIP/FLUID ORDERSOrder Description Priority Entered Acknowledged InitialedGENERAL ORDERSOrder Description Priority Entered Acknowledged Initialed[Electronically signed by Tarah Alarcon R.N. (14:01/04/2021)][Electronically signed by Perico Estrada (15:06 01/04/2021)][Electronically locked by Tarah Alarcon R.N. (14:01/04/2021)] Name Value Range Interpretation Code Description Data Ruby rce(s) Supporting Document(s) ID Date Data Source [id number] 01/04/2021 12:04:00 PM EDT [facility] 1 Medication Reconciliation Report [facility] Emergency Department [address] [place] [address] Phone #: ext- [phone] 01/04/2021 12:03 Patient: RAMON SMITH Sex: F : 1985 Age: 35yWeight: 54.4 kgHeight/Length: 59 in.BMI: 24.2ALLERGIES: Altazine Moisture Relief, ErythromycinThe patient's Home Medications are listed below:NONE.The source(s) of the original Home Medication information:Not obtained.The following Medications were given to the patient in the Emergency Department:None.The following Medications were prescribed to the patient:None. Name Value Range Interpretation Code Description Data Ruby rce(s) Supporting Document(s) ID Date Data Source [id number] 01/04/2021 12:04:00 PM EDT [facility] 1 Medication Administration Record [facility] Emergency Department [address] [place] [address] Phone #: ext [phone] 01/04/2021 12:03 Patient: RAMON SMITH Sex: F : 1985 Age: 35yWeight: 54.4 kgHeight/Length: 59 inBMI: 24.2ALLERGIES: Altazine Moisture Relief, ErythromycinDate/Time Medication Administered Medication Ordered Name Value Range Interpretation Code Description Data [facility]) Supporting Document(s) ID Date Data Source [id number] 01/04/2021 12:04:00 PM EDT [facility] 1 General Instructions [facility] Emergency Department [address] [place] [address] Phone #: ext [phone] 01/04/2021 12:03 Patient: RAMON SMITH Sex: F : 1985 Age: 35yGeneralized weakness.First trimester .INSTRUCTIONSWarnings: Further evaluation is necessary.GENERAL WARNINGS: Return or contact your physician immediately if your condition worsens orchanges unexpectedly, if not improving as expected, or if other problems arise. SPECIFICALLY, return ifthere is no improvement in the lightheadedness or fainting.Understanding of the discharge instructions verbalized by patient.Follow-up with: [facility], , , [address] [place], [address] Follow up in three days even if well. Call for an appointment.(Electronically signed by Perico Estrada 01/04/2021 15:06) Name Value Range Interpretation Code Description Data Ruby rce(s) Supporting Document(s) ID Date Data Source [id number] 01/04/2021 12:04:00 PM EDT [facility] 1 Clinical Report - Nurses [facility] Emergency Department [address] [place] [address] Phone #: pao- [phone] 01/04/2021 12:03 Patient: RAMON SMITH Sex: F : 1985 Age: 35yTRIAGEArrived by private vehicle. Historian: patient. Accompanied by family.Acuity: LEVEL 3.Chief Complaint: DIZZINESS and LIGHT HEADED and (fatigue).Alert. No acute distress.This started today. ( PT believes she is about 10 weeks after having a positive home pregnancytest and is scheduled to see an ob on 01/14. Today, she reports feeling extremely fatigued and light headedthat has gotten progressively worse. She denies any vomiting.).Treatment TALK SHOW HOST:None.SEPSIS SCREEN: SIRS SCREEN NEGATIVE. SEPSIS SCREEN NEGATIVE. No suspected or confirmedsigns of infection present.CANDI COMA SCORE: 15- eyes open- spontaneous (4); best verbal response- oriented (5); bestmotor response- obeys commands (6). --12:14 01/04/21 Tarah Alarcon R.N.12:05 01/04/21. BP: 114/59. MAP: 77. HR: 85. RR: 16. O2 saturation: 99%. Temp: 97.6 F. Pain level now:0/10. --12:14 01/04/21 Tarah Alarcon R.N.Weight: 54.4 kg stated. Height/Length: 59 inches Per Patient. BMI: 24.2. --12:09 01/04/21 Tarah Alarcon R.N.MedicationsNone. --12:10 01/04/21 Taarh Alarcon R.N.AllergiesErythromycin. --12:10 01/04/21 Tarah Alarcon R.N.[facility]. --12:11 01/04/21 Tarah Alarcon R.N.PROBLEMS:no known problems.ADDITIONAL SURGERIES:Eye surgery. --12:12 01/04/21 Tarah Alarcon R.N.History 2 Clinical Report - Nurses [facility] Emergency Department [address] [place] [address] Phone #: ext- [phone] 01/04/2021 12:03 Patient: RAMON SMITH Sex: F : 1985 Age: 35y PAST MEDICAL HX: Last normal menstrual period- Oct 26. Currently . In 1st trimester. confirmed with urine test. G 1. SOCIAL HX: Smoker- current status unknown (quit December 22). Drug use: marijuana. (3 weeks ago). No alcohol use. The patient was offered HIV testing but declined and hepatitis C testing but declined. The patient has not traveled outside the [place] Infectious disease exposure: The patient was not exposed to MRSA, VRE, CRE or Coronavirus. (had c diff in October 2020). SELF HARM ASSESSMENT: Self harm assessment was performed. The patient answered "no" to the question(s) "Have you recently felt down, depressed, or hopeless?", "Do you have thoughts of harming or killing yourself?", "Do you have a plan for harming or killing yourself?", "Have you recently had thoughts about harming or killing others?", "Do you have any dangerous items in your possession?", "Have you noticed less interest or pleasure in doing things?", "Are you here because you tried to hurt yourself?" and "Have you ever tried to hurt yourself before today?". ABUSE ASSESSMENT: No report of abuse. NUTRITIONAL RISK ASSESSMENT: The nutritional risk assessment revealed no deficiencies. FUNCTIONAL ASSESSMENT: Functional assessment: no impairments noted. LEARNING NEEDS ASSESSMENT: The learning needs assessment revealed no barriers. FALL RISK ASSESSMENT: Fall risk assessment completed. No risk factors identified. SKIN INTEGRITY ASSESSMENT: Skin integrity risk assessment completed. No skin integrity risk identified. --12:14 01/04/21 Tarah Alarocn R.N. Interventions Identification and allergy band on patient. To t reatment room. --12:14 01/04/21 Tarah Alarcon R.N.PHYSICAL ASSESSMENTGENERAL / NEURO / PSYCH: Oriented X 4. Appears in no acute distress. Alert.HEENT: Pupils equal, round and reactive to light.RESPIRATORY: Respirations not labored.CVS: Normal sinus rhythm noted.GI / : Abdomen soft.SKIN: Skin is warm and dry. --12:39 01/04/21 Moises Washington R.N.NURSING PROGRESS NOTESPatient gowned. Reassurance given. Call light placed in reach. Patient ready for evaluation- PAnotified. --12:15 01/04/21 Tarah Alarcon R.N. Reassurance given to the patient. The patient is resting quietly and sleeping. 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 --13:12 01/04/21 Moises Washington R.N.DISPOSITION / DISCHARGE Condition at departure: improved and stable. No learning barriers present. Discharge instructions provided and reviewed with the patient. Patient verbalized understanding. Written instructions provided in Chinese. ( Instructed to follow up with [facility] in [facility] days.). The patient was discharged by the physician. She was discharged home and accompanied by spouse. She left ambulatory and via private vehicle. Spouse driving. --14:29 01/04/21 Tarah Alarcon R.N. 14:28 01/04/21. BP: 100/55 taken on the left arm, manually, while lying. MAP: 70. HR: 68. RR: 18. O2 saturation: 99%. Temp: 98.5 F. Pain level now: 010. --14:29 01/04/21 Tarah Alarcon R.N.Locked/Released at 01/04/2021 14:29 by Tarah Alarcon R.N. Name Value Range Interpretation Code Description Data Ruby rce(s) Supporting Document(s) ID Date Data Source [id number] 01/04/2021 12:04:00 PM EDT [facility] 1 Clinical Report - Physicians/Mid Levels [facility] Emergency Department [address] [place] [address] Phone #: ext- [phone] 01/04/2021 12:03 Patient: RAMON SMITH Sex: F : 1985 Age: 35y Time Seen: 12:23 01/04/2021. Arrived- By private vehicle. Historian- patient.HISTORY OF PRESENT ILLNESS Chief Complaint: DIZZINESS. This started just prior to arrival and is still present (better). Not described as a sense of rotation, movement or falling. Described as feeling light-headed (for 1 month). Modifying factors- worsened by standing up. The patient has had nausea. No vomiting or tinnitus. (Tired for one month, lightheaded at times. She found out she was two weeks ago on home test. . She was at [place] to get blood work when she got lightheaded. No syncope or palpitations. On Clomid up until August. C diff in October, but was treated and now not on medications. Last menstrual cycle was Oct 24.). Similar symptoms previously. None. Recent medical care: Not recently seen/assessed.REVIEW OF SYSTEMSNo heada sparkle, weakness, palpitations, abnormal vaginal bleeding or numbness. No fever, sore throat,abdominal pain, diarrhea or skin rash. No enlarged lymph nodes, fever, numbness, diabetic symptoms oreasy bruising. No difficulty with urination. The patient has had anorexia, dizziness and anxiety. All othersystems reviewed and are negative.PAST HISTORYSee nurses notes. Problems: PTSD. Additional Surgeries: Eye surgery. Medications: None. Allergies: Altazine Moisture Relief. Erythromycin.SOCIAL HISTORYSmoker- current status unknown. 2 Clinical Report - Physicians/Mid Levels [facility] Emergency Department [address] [place] [address] Phone #: ext- [phone] 01/04/2021 12:03 Patient: RAMON SMITH Sex: F : 1985 Age: 35yADDITIONAL NOTESThe nursing notes have been reviewed.PHYSICAL EXAMVital Signs: 01/04/2021 12:05 BP: 114/59. MAP: 77. HR: 85. RR: 16. O2 saturation: 99%. Temp: 97.6 F.Pain level now: 0/10.Appearance: Alert. Anxious.Eyes: Pupils equal, round and reactive to light. No nystagmus.ENT: Normal ENT inspection. Moist mucous membranes. Pharynx normal.Neck: Normal inspection. Neck supple.CVS: Normal heart rate and rhythm. Heart sounds normal.Respiratory: No respiratory distress. Painless inspiration.Abdomen: Soft and nontender. No organom egaly.Back: Normal inspection.Skin: Skin dry. Pallor. Normal skin color. No rash. Normal skin turgor.Extremities: Extremities exhibit normal ROM.Neuro: Alert. Oriented X 3. Speech normal. Cranial nerves normal (as tested). No motor deficit. Nosensory deficit.LABS, X-RAYS, AND EKGLaboratory Tests: BMP: (CARLOS: 01/04/2021 12:48) ( MsgRcvd 01/04/2021 13:21) Final results Test Result Flag Units (Reference) BASIC METABOLIC PANEL BASIC METABOLIC PANEL SODIUM 134 mEq/L (134 - 153) POTASSIUM 3.8 mEq/L (3.6 - 5.0) CHLORIDE 105 mEq/L (98 - 107) CO2 20 L MEQ/L (22 - 30) GLUCOSE 118 H MG/DL (70 - 99) BUN 9 MG/DL (7 - 21) CREATININE 0.4 L MG/DL (0.7 - 1.5) BUN/CREAT 23 (8 - 27) CALCIUM 9.4 MG/DL (8.4 - 10.2) ANION GAP 9.0 mmol/L (8.0 - 16.0) AGE 35 yrs AFR AMER GFR >60 mL/min NON-AA GFR >60 mL/min Male GFR Interprentation 20-49 yrs >60 mL/min Normal 50-59 yrs >56 mL/min Normal 60-69 yrs >49 mL/min Normal 70-79yrs >42 mL/min Normal 80 and above >35 mL/min Normal Female GFR Interpretation 20-39 yrs >60 mL/min Normal 40-49 yrs >58 mL/min Normal 50-59 yrs >51 mL/min Normal 60-69 yrs >45 mL/min Normal 70- 79 yrs >39 mL/min Normal 80 and above >32 mL/min Normal CBC w Diff: (CARLOS: 01/04/2021 12:48) ( MsgRcvd 01/04/2021 13:44) Final results Test Result Flag Units (Reference) CBC W/AUTOMATED DIFF COMPLETE BLOOD COUNT 3 Clinical Report - Physicians/[facility] Emergency Department [address] [place] [address] Phone #: ext- [phone] 01/04/2021 12:03 Patient: RAMON SMITH Sex: F : 1985 Age: 35y WBC 11.4 H 10/uL (4.2 - 11.0) RBC 4.09 L 10/uL (4.20 - 5.40) H EMOGLOBIN 12.1 g/dL (12.0 - 16.0) HEMATOCRIT 35.7 L % (37.0 - 47.0) MCV 87.3 fL (81.0 - 101) MCH 29.6 pg (27.0 - 34.0) MCHC 33.9 g/dL (31.0 - 36.0) RDW 15.2 H % (11.5 - 14.5) PLATELETS 137 L 10/uL (150 - 450) MPV 13.4 H fL (7.4 - 10.4) NEUT 67.1 % (37.0 - 80.0) LYMPH 20.5 L % (25.0 - 40.0) MONO 10.0 H % (3.0 - 8.0) EOS 1.4 % (0.0 - 7.0) BASO 0.5 % (0.0 - 2.5) %IG 0.5 H % (0.0 - 0.0) %NRBC 0.0 % (0.0 - 0.0) #NEUT 7.63 H 10/uL (2.00 - 6.90) #LYMPH 2.33 10/uL (0.60 - 3.40) #MONO 1.14 H 10/uL (0.00 - 0.90) #EOS 0.16 10/uL (0.00 - 0.70) #BASO 0.06 10/uL (0.00 - 0.20) #IG 0.06 10/uL (0.00 - 0.10) #NRBC 0.00 10/uL (0.00 - 0.00) MANUAL DIFF SEE BELOW SEGS 81 H % (37 - 80) %LYMPH 18 L % (25 - 40) %MONO 1 L % (3 - 8) RBC MORPH NOT INDICATEDBeta-HCG, Quant Serum: (CARLOS: 01/04/2021 12:48) ( MsgRcvd 01/04/2021 14:05) Final results Test Result Flag Units (Reference) HCG QUANT 086307.0 mIU/mL Interpretation: Less than 5 mU/mL: Negative6-10 mU/mL: Borderline (suggest repeat in 48 hours) >10: PositiveApprox HCG range (mU/mL) Weeks post LMP 5.4-708 mU/mL 3-4 Egute005-25510 mU/mL 5-6 Weeks 4059-256325 mU/mL 7-8 Usaha88414-195034 mU/mL 9-10 Weeks 01838-32917 mU/mL 12-14 Uundn69082-69442 mU/mL 15-16 Weeks 8240-31277 mU/mL 17-18 WeeksUrinalysis: (CARLOS: 01/04/2021 12:41) ( MsgRcvd 01/04/2021 14:02) Final results Test Result Flag Units (Reference) URINALYSIS URINALYSIS SOURCE R COLOR yellow (NORMAL: Yello CLARITY hazy (NORMAL: Clear SPEC GRAVITY 1.025 (1.001 - 1.030 pH 6 (5 - 9) GLU COSE NORM (NORMAL: Negat BILIRUBIN NEG (NORMAL: Negat KETONE 5 A (NORMAL: Negat PROTEIN NEG (NORMAL: Negat NITRITE NEG (NORMAL: Negat BLOOD 10 A (NORMAL: Negat LEUK EST 25 (NORMAL: Negat UROBILINOGEN NOR (less than 1.0 4 Clinical Report - Physicians/Mid Levels [facility] Emergency Department [address] [place] [address] Phone #: ext- [phone] 01/04/2021 12:03 Patient: RAMON SMITH Sex: F : 1985 Age: 35y MICROSCOPIC See Below WBC 1 - 3 (NORMAL: NONE RBC 1 - 3 (NORMAL: NONE EPITHELIAL MODERATE A (NORMAL: NONE BACTERIA 1+ SMALL (NORMAL: NONE MUCOUS 1+ (NORMAL: NONE.PROGRESS AND PROCEDURESCourse of Care: 12:39 01/04/21. Vital signs normal. Benign abdominal examination. Her fatigue andnausea can be explained by her . 14:11 01/04/21. Patient feeling improved and no longer anxious. No tachycardia or hypotension. No hypoxia. No reports of any pelvic pain or vaginal bleeding. No signs of any anemia. HCG correlates with her 10 week . Patient will follow up with her PERIOPERATIVE ASSISTANT, and PCP 14:32 01/04/21. Systolic is 100. Slight drop in bp expected with her going into 2nd trimester. This mostly explains her lightheadedness and fatigue. She understands the discharge diagnosis. Disposition: Discharged. Condition: stable.CLINICAL IMPRESSION Generalized weakness. First trimester .INSTRUCTIONS Warnings: Further evaluation is necessary. GENERAL WARNINGS: Return or contact your physician immediately if your condition worsens or changes unexpectedly, if not improving as expected, or if other problems arise. SPECIFICALLY, return if there is no improvement in the lightheadedness or fainting. Understanding of the discharge instructions verbalized by patient. Follow-up with: [facility], , , [address] [place] [address], [facility] Follow up in three days even if well. Call for an appointment.(Electronically signed by Perico Estrada 01/04/2021 15:06) 5Clinical Report - Physicians/Mid Levels [facility] Emergency D epartment [address] [place] [address] Phone #: [phone] 01/04/2021 12:03 Patient: RAMON SMITH Sex: F : 1985 Age: 35y Name Value Range Interpretation Code Description Data Ruby rce(s) Supporting Document(s) ID Date Data Source [id number] 01/04/2021 12:48:00 PM EDT [facility] ([facility]) Name Value Range Interpretation Code Description Data Ruby rce(s) Supporting Document(s) Choriogonadotropin.beta subunit [Moles/volume] in Seru m or Plasma 252909.0 mIU/mL [facility] ([facility]) Interpretation: Less than 5 mU/mL: Negative 6-10 mU/mL: Borderline (suggest repeat i n 48 hours) >10: Positive Approx HCG range (mU/mL) Weeks post LMP 5.4-708 mU/mL 3-4 Weeks 217-99074 mU/mL 5-6 Weeks 4059-229859 mU/mL 7-8 Weeks 05678-124981 mU/mL 9-10 Weeks 67689-62770 mU/mL 12-14 Weeks 74263-78640 mU/mL 15-16 Weeks 8240-40343 mU/mL 17-18 Weeks ID Date Data Source [id number] 01/04/2021 12:48:00 PM EDT [facility] ([facility]) Name Value Range Interpretation Code Description Data Ruby rce(s) Supporting Document(s) WBC 11.4 10^3/uL 4.2-11.0 Above high normal [facility] T ([facility]) CBC W/Automated Diff Laboratory test result [facility] ([facility]) COMPLETE BLOOD COUNT RBC 4.09 10^6/uL 4.20-5.40 Below low normal [facility] ([facility]) Hemoglobin 12.1 g/dL 12.0-16.0 [facility] ([facility]) MCH 29.6 pg 27.0-34.0 [facility] ([facility]) MCV 87.3 fL 81.0-101 [facility] ([facility]) Hematocrit 35.7 % 37.0-47.0 Below low normal [facility] ( [facility]) MCHC 33.9 g/dL 31.0-36.0 [facility] ([facility]) RDW 15.2 % 11.5-14.5 Above high normal [facility] ([facility]) Platelets 137 10^3/uL 150-450 Below low normal [facility] ([facility]) MPV 13.4 fL 7.4-10.4 Above high normal [facility] ([facility]) Neut 67.1 % 37.0-80.0 [facility] ([facility]) Lymph 20.5 % 25.0-40.0 Below low normal [facility] ( [facility]) [place] 10.0 % 3.0-8.0 Above high normal [facility] ([facility]) %Ig 0.5 % 0.0-0.0 Above high normal [facility] ([facility]) Baso 0.5 % 0.0-2.5 [facility] ([facility]) Eos 1.4 % 0.0-7.0 [facility] ([facility]) %NRBC 0.0 % 0.0-0.0 [facility] ([facility]) #Neut 7.63 10^3/uL 2.00-6.90 Above high normal [facility] ([facility]) #Eos 0.16 10^3/uL 0.00-0.70 [facility] ([facility]) #[place] 1.14 10^3/uL 0.00-0.90 Above high normal [facility] ([facility]) #Lymph 2.33 10^3/uL 0.60-3.40 [facility] ([facility]) #Ig 0.06 10^3/uL 0.00-0.10 [facility] ([facility]) #Baso 0.06 10^3/uL 0.00-0.20 [facility] ([facility]) #NRBC 0.00 10^3/uL 0.00-0.00 [facility] ([facility]) Manual Diff Laboratory test result M [facility] ([facility]) Segs 81 % 37-80 Above high normal [facility] ([facility]) %Lymph 18 % 25-40 Below low normal [facility] ([facility]) RBC Morph Laboratory test result [facility] ([facility]) %[place] 1 % 3-8 Below low normal [facility] ([facility]) ID Date Data Source [id number] 01/04/2021 12:48:00 PM EDT [facility] ([facility]) Name Value Range Interpretation Code Description Data Ruby rce(s) Supporting Document(s) Sodium 134 meq/L 134-153 [facility] ([facility]) Basic Metabolic Pane Laboratory test result [facility] ([facility]) BASIC METABOLIC PANEL Chloride 105 meq/L 98-107 [facility] ([facility]) Potassium 3.8 meq/L 3.6-5.0 [facility] ([facility]) BUN 9 mg/dL 7-21 [facility] ([facility]) Glucose 118 mg/dL 70-99 Above high normal [facility] ([facility]) Co2 20 meq/L 22-30 Below low normal [facility] ([facility]) Creatinine 0.4 mg/dL 0.7-1.5 Below low normal [facility] ( [facility]) BUN/Creat 23 8-27 [facility] ([facility]) Calcium 9.4 mg/dL 8.4-10.2 [facility] ([facility]) Age 35 yrs [facility] ([facility]) Anion Gap 9.0 mmol/L 8.0-16.0 [facility] ([facility]) Afr Amer GFR Laboratory test result [facility] ([facility]) Non-Aa GFR Laboratory test result [facility] ([facility]) Male GFR Interprentation 20-49 yrs >60 mL/min Normal 50-59 yrs >56 mL/min Normal 60-69 yrs >49 mL/min Normal 70-79yrs >42 mL/min Normal 80 and above >35 mL/min Normal Female GFR Interpretation 20-39 yrs >60 mL/min Normal 40-49 yrs >58 mL/min Normal 50-59 yrs >51 mL/min Normal 60-69 yrs >45 mL/min Normal 70-79 yrs >39 mL/min Normal 80 and above >32 mL/min Normal ID Date Data Source [id number] 01/04/2021 01:21:00 PM EDT [facility] Name Value Range Interpretation Code Description Data Ruby rce(s) Supporting Document(s) BASIC METABOLIC PANEL [facility] BASIC METABOLIC PANEL Sodium [Moles/volume] in Serum or Plasma 134 mEq/L 134 - 153 [facility] Potassium [Moles/volume] in Serum or Plasma 3.8 mEq/L 3.6 - 5.0 [facility] Chloride [Moles/volume] in Serum or Plasma 105 mEq/L 98 - 107 [facility] Carbon dioxide, total [Moles/volume] in Serum or Plasma 20 MEQ/L 22 - 30 L [facility] Glucose [Mass/volume] in Serum or Plasma 118 MG/DL 70 - 99 H [facility] BUN 9 MG/DL 7 - 21 Health system Creatinine [Mass/volume] in Serum or Plasma 0.4 MG/DL 0.7 - 1.5 L [facility] BUN/CREAT 23 8 - 27 Health system Calcium [Mass/volume] in Serum or Plasma 9.4 MG/DL 8.4 - 10.2 [facility] Anion gap 3 in Serum or Plasma 9.0 mmol/L 8.0 - 16.0 [facility] AGE 35 yrs Health system AFR AMER GFR >60 mL/min [facility] NON-AA GFR >60 mL/min [facility] ital Male GFR Inter prentation 20-49 yrs >60 mL/min Normal 50-59 yrs >56 mL/min Normal 60-69 yrs >49 mL/min Normal 70-79yrs >42 mL/min Normal 80 and above >35 mL/min Normal Female GFR Interpretation 20-39 yrs >60 mL/min Normal 40-49 yrs >58 mL/min Normal 50-59 yrs >51 mL/min Normal 60-69 yrs >45 mL/min Normal 70-79 yrs >39 mL/min Normal 80 and above >32 mL/min Normal ID Date Data Source [id number] 01/04/2021 02:04:00 PM EDT [facility] Name Value Range Interpretation Code Description Data Ruby rce(s) Supporting Document(s) Choriogonadotropin.intact [Units/volume] in Serum or Plasma 943265. 0 mIU/mL [facility] Interpr etation: Less than 5 mU/mL: Negative 6-10 mU/mL: Borderline (suggest repeat in 48 hours) >10: Positive Approx HCG range (mU/mL) Weeks post LMP 5.4-708 mU/mL 3-4 Weeks 217-46214 mU/mL 5-6 Weeks 4059-249853 mU/mL 7-8 Weeks 91948-297128 mU/mL 9-10 Weeks 26229-66959 mU/mL 12-14 Weeks 28646-64495 mU/mL 15-16 Weeks 5014- 89775 mU/mL 17-18 Weeks ID Date Data Source [id number] 01/04/2021 01:42:00 PM EDT [facility] Name Value Range Interpretation Code Description Data Ruby rce(s) Supporting Document(s) CBC W/AUTOMATED DIFF [facility] COMPLETE BLOOD COUNT Leukocytes [#/volume] in Blood by Automated count 11.4 10^3/uL 4.2 - 11.0 H [facility] Erythrocytes [#/volume] in Blood by Automated count 4.09 10^6/uL 4. 20 - 5.40 L [facility] Hemoglobin [Mass/volume] in Blood 12.1 g/dL 12.0 - 16.0 [facility] Hematocrit [Volume Fraction] of Blood by Automated count 35.7 % 3 7.0 - 47.0 L [facility] Erythrocyte mean corpuscular volume [Entitic volume] by Auto mated count 87.3 fL 81.0 - 101 [facility] Erythrocyte mean corpuscular hemoglobin [Entitic mass] by Automated count 29.6 pg 27.0 - 34.0 [facility] Erythrocyte mean corpuscular hemoglobin concentration [Mass/volume] by Automated count 33.9 g/dL 31.0 - 36.0 [facility] Erythrocyte distribution width [Ratio] by Automated count 15.2 % 11.5 - 14.5 H [facility] Platelets [#/volume] in Blood by Automated count 137 10^3/uL 150 - 45 0 L [facility] Platelet mean volume [Entitic volume] in Blood by Automated count 13.4 fL 7.4 - 10.4 H [facility] Neutrophils/100 leukocytes in Blood by Automated count 67.1 % 37. 0 - 80.0 [facility] Lymphocytes/100 leukocytes in Blood by Manual count 20.5 % 25.0 - 40.0 L [facility] Monocytes/100 leukocytes in Blood by Automated count 10.0 % 3.0 - 8.0 H [facility] Eosinophils/100 leukocytes in Blood by Automated count 1.4 % 0.0 - 7.0 [facility] Basophils/100 leukocytes in Blood by Automated count 0.5 % 0.0 - 2.5 [facility] %IG 0.5 % 0.0 - 0.0 H [facility] %NRBC 0.0 % 0.0 - 0.0 [facility] al Neutrophils [#/volume] in Blood by Automated count 7.63 10^3/uL 2.00 - 6.90 H [facility] Lymphocytes [#/volume] in Blood by Automated count 2.33 10^3/uL 0.60 - 3.40 [facility] Monocytes [#/volume] in Blood by Automated count 1.14 10^3/uL 0.00 - 0.90 H [facility] Eosinophils [#/volume] in Blood by Automated count 0.16 10^3/uL 0.00 - 0.70 [facility] Basophils [#/volume] in Blood by Automated count 0.06 10^3/uL 0.00 - 0.20 [facility] #IG 0.06 10^3/uL 0.00 - 0.10 [facility] #NRBC 0.00 10^3/uL 0.00 - 0.00 [facility] ospital MANUAL DIFF SEE BELOW [facility] Segmented neutrophils/100 leukocytes in Blood by Manual count 81 % 37 - 80 H [facility] %LYMPH 18 % 25 - 40 L [facility] al %MONO 1 % 3 - 8 L [facility] al RBC MORPH NOT INDICATED [facility] ID Date Data Source [id number] 01/04/2021 12:41:00 PM EDT [facility] ([facility]) Name Value Range Interpretation Code Description Data Ruby rce(s) Supporting Document(s) Urinalysis Laboratory test result [facility] ([facility]) SOURCE: Clean Catch Source Laboratory test result [facility] ([facility]) SOURCE: Clean Catch Color Laboratory test result [facility] ([facility]) SOURCE: Clean Catch Spec [place] 1.025 1.001-1.030 [facility] ([facility]) SOURCE: Clean Catch Clarity Laboratory test result [facility] ([facility]) SOURCE: Clean Catch Bilirubin Laboratory test result [facility] ([facility]) SOURCE: Clean Catch Glucose Laboratory test result [facility] ([facility]) SOURCE: Clean Catch pH 6 5-9 [facility] ([facility]) SOURCE: Clean Catch Ketone 5 Abnormal (applies to non-numeric res ults) [facility] ([facility]) SOURCE: Clean Catch Protein Laboratory test result [facility] ([facility]) SOURCE: Clean Catch Leuk Est 25 [facility] ([facility]) SOURCE: Clean Catch Blood 10 Abnormal (applies to non-numeric res ults) [facility] ([facility]) SOURCE: Clean Catch Nitrite Laboratory test result [facility] ([facility]) SOURCE: Clean Catch Urobilinogen Laboratory test result [facility] ([facility]) SOURCE: Clean Catch Microscopic Laboratory test result M [facility] ([facility]) SOURCE: Clean Catch Epithelial Laboratory test result Abnormal (applies to non -numeric results) [facility] ([facility]) SOURCE: Clean Catch RBC Laboratory test result [facility] ([facility]) SOURCE: Clean Catch WBC Laboratory test result [facility] ([facility]) SOURCE: Clean Catch Bacteria Laboratory test result [facility] ([facility]) SOURCE: Clean Catch Mucous Laboratory test result [facility] ([facility]) SOURCE: Clean Catch ID Date Data Source [id number] 01/04/2021 02:01:00 PM EDT [facility] Name Value Range Interpretation Code Description Data Ruby rce(s) Supporting Document(s) [facility] COLOR yellow NORMAL: Yellow [facility] CLARITY hazy NORMAL: Clear [facility] Specific gravity of Urine by Test strip 1.025 1.001 - 1.030 [facility] pH 6 5 - 9 [facility] Glucose [Mass/volume] in Urine by Test strip NORM NORMAL: Negat garcia [facility] Bilirubin.total [Presence] in Urine by Test strip NEG NORMAL: Negative [facility] Ketones [Presence] in Urine by Test strip 5 NORMAL: Negative A [facility] Protein [Mass/volume] in Urine by Test strip NEG NORMAL: Negat garcia [facility] Nitrite [Presence] in Urine by Test strip NEG NORMAL: Negative [facility] BLOOD 10 NORMAL: Negative A [facility] Leukocyte esterase [Presence] in Urine by Test strip 25 CHRISTA L: Negative [facility] Urobilinogen [Mass/volume] in Urine by Test strip NOR less jorge n 1.0 mg/dL [facility] MICROSCOPIC See Below [facility] ital WBC 1 - 3 NORMAL: NONE SEEN [facility] Erythrocytes [#/volume] in Urine by Test strip 1 - 3 NORMAL: NON E SEEN [facility] EPITHELIAL MODERATE NORMAL: NONE SEEN [facility] Bacteria [Presence] in Urine sediment by Light microscopy 1+ SMALL NORMAL: NONE SEEN [facility] Mucus [Presence] in Urine sediment by Light microscopy 1+ NOR MAL: NONE SEEN [facility] ID Date Data Source [id number] 11/17/2020 07:32:00 PM EDT [facility] ([facility]) Name Value Range Interpretation Code Description Data Ruby rce(s) Supporting Document(s) Gastrointestinal (GI) Panel Laboratory test result [facility] ([facility]) This Gastrointestinal PCR Panel detects the following bacteria, parasites and viruses: Campylobacter (jejuni, coli and upsaliensis), Clostridium difficile (toxin A/B), Plesiomonas shigelloides, Salmonella, Yersinia enterocolitica, Vibrio (parahaemolyticus, vulnificus and cholerae), Vibrio clolerae, Enteroaggregative E. coli (EAEC), Enteropathogenis E. coli (EPEC), Enterotoxigenic E. coli (ETEC) it/st, Shiga-like producing E. coli (STEC) stx1/stc2, E.coli O157, Shigella/Enteroinvasive E. coli (EIEC), Cryptosporidium, Cyclospora cayetanensis, Entamoeba histolytica, Giardia lamblia, Adenovirus F 40/41, Astrovirus, Norovirus GI/GII, Rotavirus A and Sapovirus (I, II, IV, V). POSITIVE by MULTIPLEXED NUCLEIC ACID PCR ORGANISM 1: CLOSTRIDIUM DIFFICILE A/B UNFORMED stool. Performing testing on formed stool from patients who do not have CDI symptoms detects asymptomatic colonized patients (up to 30% of hospitalized patients are colonized with C. difficile). Patients with false positive results may be given unnecessary treatment, placed on contact isolation, and be at increased risk of vancomycin resistant enterococci. ORGANISM 1: CLOSTRIDIUM DIFFICILE A/B ID Date Data Source [id number] 11/17/2020 05:44:[address] [facility] [facility] Name Value Range Interpretation Code Description Data Ruby rce(s) Supporting Document(s) Laboratory test finding (navigational concept) Laboratory test r esult Normal (applies to non-numeric results) [facility] ([facility]) <content>QUANTITATIVE RESULT QU ALITATIVE INTERPRETATION</content>
<content> </content>
<content><5.0 IU/L NEGATIVE</content>
<content>5.0 - 25.0 IU/L INDETERMINATE</content>
<content>>25.0 IU/L POSITIVE</content>
<content></content> ID Date Data Source [id number] 11/17/2020 05:39:00 PM [facility] Name Value Range Interpretation Code Description Data Ruby rce(s) Supporting Document(s) Laboratory test finding (navigational concept) 45.0 % 3 8.0-51.0 Normal (applies to non-numeric results) [facility] ([facility]) Laboratory test finding (navigational concept) 107 mg/dL 7 0-105 Above high normal [facility] ([facility]) Laboratory test finding (navigational concept) 140 meq/L 1 36-145 Normal (applies to non-numeric results) [facility] Laboratory test finding (navigational concept) 4.7 mg/dL 4 .5-5.3 Normal (applies to non-numeric results) [facility] ([facility]) Laboratory test finding (navigational concept) 5.8 meq/L 3 .5-5.1 Above high normal [facility] ([facility]) Laboratory test finding (navigational concept) 22.0 MM/L 2 3.0-27.0 Below low normal [facility] ([facility]) Laboratory test finding (navigational concept) 109 meq/L 9 8-109 Normal (applies to non-numeric results) [facility] ([facility]) Laboratory test finding (navigational concept) 0.5 mg/dL 0 .6-1.3 Below low normal [facility] ([facility]) Laboratory test finding (navigational concept) 12 mg/dL 8 -26 Normal (applies to non-numeric results) [facility] ([facility]) ID Date Data Source [id number] 11/17/2020 05:04:00 PM EDT [facility] ([facility]) Name Value Range Interpretation Code Description Data Ruby rce(s) Supporting Document(s) White Blood Count 28.8 10 4.0-10.0 Above high normal [facility] ([facility]) A Pathologist review of this differentia l can help in the evaluation of a differential diagnosis. Please order a Pathologist Review (PERISM) if deemed necessary. Results are subject to change if a Pathologist Review is performed. Red Blood Count 5.35 10 4.00-5.40 Normal (applies to non-numeric results) [facility] ([facility]) Hemoglobin 14.3 g/dL 12.0-15.5 Normal (applies to non-numeric resul ts) [facility] ([facility]) Hematocrit 46.2 % 36.0-47.0 Normal (applies to non-numeric resul ts) [facility]) Mean Corpuscular Volume 86.4 fl 80.0-96.0 Normal ( applies to non-numeric results) [facility] ([facility]) Mean Corpuscular Hemoglobin 26.7 pg 27.0-33.0 Below low normal [facility] ([facility]) Red Cell Distribution Width 19.0 % 11.5-14.5 Above high normal [facility] ([facility]) Mean Corpuscular HGB Conc 31.0 g/dL 32.0-36.5 Below low normal [facility] ([facility]) Platelet Count, Automated 146 10 150-450 Below low normal [facility] ([facility]) Neutrophils % 83.3 % 36.0-66.0 Above high normal [facility] ([facility]) Lymph % 6.8 % 24.0-44.0 Below low normal [facility] ( [facility]) [place] % 8.0 % 2.0-8.0 Normal (applies to non-numeric resul ts) [facility] ([facility]) Eos % 0.6 % 0.0-3.0 Normal (applies to non-numeric resul ts) [facility] ([facility]) Baso % 0.3 % 0.0-1.0 Normal (applies to non-numeric resul ts) [facility] ([facility]) Nucleated Red Blood Cell % 0.0 % 0-0 Normal (applies to n on-numeric results) [facility] ([facility]) Immature Granulocyte % 1.0 % 0-3.0 Normal (applies to non-n umeric results) [facility] ([facility]) Lymph # 2.0 10 1.5-5.0 Normal (applies to non-numeric resul ts) [facility] ([facility]) Neutrophils # 24.0 10 1.5-8.5 Above high normal [facility] ([facility]) [place] # 2.3 10 0.0-0.8 Above high normal [facility] ([facility]) Eos # 0.2 10 0.0-0.5 Normal (applies to non-numeric resul ts) [facility] ([facility]) Baso # 0.1 10 0.0-0.2 Normal (applies to non-numeric resul ts) [facility] ([facility]) ID Date Data Source [id number] 11/17/2020 05:04:00 PM EDT [facility] ([facility]) Name Value Range Interpretation Code Description Data Ruby rce(s) Supporting Document(s) Lipase [Enzymatic activity/volume] in Serum or Plasma 106 U/L 73-393 Normal (applies to non-numeric results) [facility] ([facility]) ID Date Data Source [id number] 11/17/2020 05:04:00 PM EDT [facility] ([facility]) Name Value Range Interpretation Code Description Data Ruby rce(s) Supporting Document(s) Ast/Sgot 59 U/L 7-37 Above high normal [facility] ([facility]) Testing was performed on a hemolysed spe cimen. Suggest recollection of specimen for more accurate test results. Alt/SGPT 45 U/L 12-78 Normal (applies to non-numeric resul ts) [facility] ([facility]) Bilirubin,Total 0.3 mg/dL 0.2-1.0 Normal (applies to non-numeric results) [facility] ([facility]) Alkaline Phosphatase 59 U/L 45-117 Normal (applies to non-num rj results) [facility] ([facility]) Total Protein 7.8 GM/DL 6.4-8.2 Normal (applies to non-numeric re sults) [facility] ([facility]) Bilirubin,Direct Laboratory test result 0.0-0.2 Normal ( applies to non-numeric results) [facility] ([facility]) Albumin 4.0 GM/DL 3.2-5.2 Normal (applies to non-numeric resul ts) [facility] Albumin/Globulin Ratio 1.1 1.2-2.2 Below low normal [facility] ([facility]) ID Date Data Source [id number] 09/10/2020 09:18:00 [place] [address] PHONE: [phone] FAX: [phone] Name .................. : SARAH Ferrell Acct Number.................. : [id number] ROOM. ................. : MR Number ................... : [id number] Stay type ............. : CLINIC Discharge Date......... ... : 09/07/20 Admit Date ...... ... : 09/07/20 Admit Phys .................... : JORGE Date of ....... : 1985 Family Phys ................... : ANUP Phone .................. : [phone] Age ................................ : 35 Film# .................. .:[id number] Sex ................................. : F Unsigned transcriptions are preliminary reports and do not represent a medical or legal document [place] [id number] COMPLETE:09/07/20 13:02 KBO 1764 (REASON FOR P ROCESS: PAIN LEFT ANKLE X-RAY: INDICATION: Pain. FINDINGS: The ankle mortise is symmetric. No evidence of an acute fracture or dislocation is identified. The soft tissues appear unremarkable. IMPRESSION: Unremarkable left ankle. Examination dictated by YENNI Tinajero. Examination was reviewed with Idalmis Martin MD, radiologist at the time of this dictation. Electronically Reviewed and Signed By Idalmis Martin MD , 09/10/20 09:18, KGG Transcribe Initials: DZ , Transcribe Date: 09/08/20 03:24, Dictation Date: Page 1 of 1 Name Value Range Interpretation Code Description Data Ruby rce(s) Supporting Document(s) ID Date Data Source [id number] 09/07/2020 10:10:00 AM EST [facility] ([facility]) Name Value Range Interpretation Code Description Data Ruby rce(s) Supporting Document(s) Ankle Complete LT [facility] Procedure Social History No Information Vital Signs ID Date Data Source [id number] Name Value Range Interpretation Code Description Data Source(s) Body temperature 97.5 [degF] 97.5 [degF] [facility] ([facility]) Oxygen saturation in Arterial blood by Pulse oximetry 99 % 99 % [facility] ([facility]) Body temperature 98.0 [degF] 98.0 [degF] [facility] ([facility]) Body weight 117.50 [lb_av] 117.50 [lb_av] [facility] ([facility]) Systolic blood pressure 118 mm[Hg] 118 mm[Hg] [facility] ([facility]) Diastolic blood pressure 78 mm[Hg] 78 mm[Hg] [facility] ([facility]) Heart rate 77 /min 77 /min [facility] ([facility]) Respiratory rate 16 /min 16 /min [facility] ( [facility]) Body weight 53.298 kg 53.298 kg [facility] ([facility]) Body height 59 [in_i] 59 [in_i] [facility] ([facility]) 4'11" Body mass index (BMI) [Ratio] 23.7 kg/m2 23.7 k g/m2 [facility] ([facility]) Body surface area Derived from formula 1.47 m2 1.47 m2 [facility] ([facility]) Body temperature 97.1 [degF] 97.1 [degF] [facility] ([facility]) Systolic blood pressure 122 mm[Hg] 122 mm[Hg] [facility] ([facility]) Diastolic blood pressure 80 mm[Hg] 80 mm[Hg] [facility] ([facility]) Heart rate 93 /min 93 /min [facility] ([facility]) Respiratory rate 17 /min 17 /min [facility] ( [facility]) Oxygen saturation in Arterial blood by Pulse oximetry 99 % 99 % [facility] ([facility]) Body weight 121.00 [lb_av] 121.00 [lb_av] [facility] ([facility]) Body weight 54.886 kg 54.886 kg [facility] ([facility]) Body height 59 [in_i] 59 [in_i] [facility] ([facility]) 4'11" Body mass index (BMI) [Ratio] 24.4 kg/m2 24.4 k g/m2 [facility] ([facility]) Body surface area Derived from formula 1.49 m2 1.49 m2 [facility] ([facility]) Systolic blood pressure 118 mm[Hg] 118 mm[Hg] [facility] ([facility]) Diastolic blood pressure 62 mm[Hg] 62 mm[Hg] [facility] ([facility]) Heart rate 85 /min 85 /min [facility] ([facility]) Body temperature 98.6 [degF] 98.6 [degF] [facility] ([facility]) Respiratory rate 16 /min 16 /min [facility] ( [facility]) Oxygen saturation in Arterial blood by Pulse oximetry 96 % 96 % [facility] ([facility]) Body weight 119.00 [lb_av] 119.00 [lb_av] [facility] ([facility]) Body weight 53.978 kg 53.978 kg [facility] ([facility]) Body height 59 [in_i] 59 [in_i] [facility] ([facility]) 4'11" Body mass index (BMI) [Ratio] 24.0 kg/m2 24.0 k g/m2 [facility] ([facility]) Body surface area Derived from formula 1.48 m2 1.48 m2 [facility] ([facility]) Heart rate 99 /min 99 /min [facility] ([facility]) Body temperature 97.8 [degF] 97.8 [degF] [facility] ([facility]) Oxygen saturation in Arterial blood by Pulse oximetry 98 % 98 % [facility] ([facility]) Body temperature 97.3 [degF] 97.3 [degF] [facility] ([facility] ) Body temperature 98.2 [degF] 98.2 [degF] [facility] ([facility] ) Body weight 117.12 [lb_av] 117.12 [lb_av] [facility] ([facility] ) Body mass index (BMI) [Ratio] 23.3 kg/m2 23.3 k g/m2 [facility] ([facility] ) Body temperature 96.8 [degF] 96.8 [degF] [facility] ([facility] ) Body height 59.5 [in_i] 59.5 [in_i] [facility] ([facility] ) 4'11.50"
[2021-08-02] MEDS ORDERED: LACTATED RINGER'S 1000 ML IV STA (10:11)
[2021-08-02] MEDS ORDERED: LIDOCAINE 1% MDV 20ML VIAL INFIL PRN (10:15)
[2021-08-02] MEDS ORDERED: METHYLERGONOVINE MALEATE 0.2 MG/ML VIAL (J2210) IM PRN (10:15)
[2021-08-02] MEDS ORDERED: OXYTOCIN DRIP 30 UNITS in IV 1 EA IV PRN (10:15)
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
[2021-08-02] MEDS ORDERED: miSOPROStol 50MCG 1/2 TABLET PO SCH (11:00)
[2021-08-02 11:39] LABS: HEMATOCRIT 38.5 % (36.0-47.0); HEMOGLOBIN 12.3 g/dl (12.0-15.5); MEAN CORPUSCULAR HEMOGLOBIN 28.7 pg (27.0-33.0); MEAN CORPUSCULAR HGB CONC 31.9 g/dl (32.0-36.5); MEAN CORPUSCULAR VOLUME 89.7 fl (80.0-96.0); PLATELET COUNT, AUTOMATED 130 10^3/uL (150-450); RED BLOOD COUNT 4.29 10^6/uL (4.00-5.40); WHITE BLOOD COUNT 12.3 10^3/uL (4.0-10.0)
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
[2021-08-02] MEDS ORDERED: OXYTOCIN DRIP 30 UNITS in IV 1 EA IV SCH (15:35)
[2021-08-02] MEDS ORDERED: LR 1,000 ML IV SCH (15:35)
[2021-08-02] MEDS ORDERED: PENICILLIN G POTASSIUM 5 MU VIAL As Ordered ONE (20:01)
[2021-08-02 21:34] LABS: CORD GAS ABE A -6.7; CORD GAS ABE V -6.3; CORD GAS HCO3 A 24.9 MEQ/L; CORD GAS HCO3 V 23.5 MEQ/L; CORD GAS O2 SAT A 48.7 %; CORD GAS O2 SAT V 50.4 %; CORD GAS PCO2 A 77.1 mmHg; CORD GAS PCO2 V 63.3 mmHg; CORD GAS PH A 7.127 UNITS; CORD GAS PH V 7.187 UNITS; CORD GAS PO2 V 24.5 mmHg; CORD GAS SBC A 17.9 MEQ/L; CORD GAS SBC V 18.3 MEQ/L; CORD GAS TCO2 A 27.3 MEQ/L; CORD GAS TCO2 V 25.4 MEQ/L
[2021-08-02] MEDS ORDERED: MEASLES,MUMPS,RUBELLA VACCINE INJ (MMR-II) (90707) SC SCH (21:35)
[2021-08-02] MEDS ORDERED: RHOGAM 300 MCG (1500 IU) INJ (J2790) IM SCH (21:35)
[2021-08-02] MEDS ORDERED: MOM 30ML SUSPENSION UDC PO PRN (21:35)
[2021-08-02] MEDS ORDERED: ANUSOL HC CREAM 30GM TOP PRN (21:35)
[2021-08-02] MEDS ORDERED: DIBUCAINE 1% OINTMENT 30GM TOP PRN (21:35)
[2021-08-02] MEDS ORDERED: DOCUSATE SODIUM 100MG CAPSULE PO PRN (21:35)
[2021-08-02] MEDS ORDERED: IBUPROFEN 600MG TAB PO PRN (21:35)
[2021-08-02] MEDS ORDERED: METHYLERGONOVINE MALEATE 0.2 MG TAB PO PRN (21:35)
--- NOTE | 2021-08-02 21:46 | DNPDOC ---
[facility] Delivery Note Delivery Note DATE OF DELIVERY: 08/02/2021 PREDELIVERY DIAGNOSIS: 40-1/7 weeks' gestation and labor. POST DELIVERY DIAGNOSIS: Delivered. PROCEDURE: Spontaneous vaginal delivery. PROVIDER: Pattie Li CNM ANESTHESIA: local for repair. ESTIMATED BLOOD LOSS: 400 mL. FINDINGS: 5 pound 2 ounce, 2330gm female , Score 8/9, nuchal cord times 1 reduced prior to delivery. DELIVERY SUMMARY: Patient is a 36-year-old 1 now para 1-0-0-1 who was admitted to labor and delivery for induction of labor at term due to intrauterine growth restriction. She received one dose of misoprostol followed by pitocin and labor progressed. She coped with her labor physiologically. Spontaneous rupture of membranes for clear fluid at 1931. Fully dilated 2028. Viable female child delivered MARISA after reduction of loose nuchal cord @ 2041. Spontaneous respirations, Transitioned on maternal abdomen. Cord gases obtained and pending. Cord doubly clamped and cut by FOB under my direction once pulsations ceased. Apgars 8/9. Placenta mccoy, intact with 3v cord @ 2053. Marginal cord insertion noted. Fundus firmed with massage and premixed IV pitocin. EBL 400ml. 2nd degree perineal laceration with bilateral sulcus lacerations infiltrated with lidocaine. Repaired in layers with 3-0 vicryl rapide. Sponge sharp and instrument count correct. Pattie Li CNM Aug 02, 2021 21:46
[2021-08-03] MEDS: IBUPROFEN 800 MG TAB PO PRN ×2 (03:33→18:32)
[2021-08-03 06:00] VITALS: BP 129/59
[2021-08-03] MEDS: PRENATAL VITAMINS CHEWABLE TABLET PO SCH (09:26)
[2021-08-03] MEDS: ACETAMINOPHEN TAB 650MG DOSE (2X325MG) PO PRN (09:27)
--- NOTE | 2021-08-03 11:11 | IPNPDOC ---
Text Note Date of Service The patient was seen on 08/03/21. NOTE S: no complaints O: AVSS NAD Abd: NT, FF ext: NT A/P s/p PPD#1 routine PP care VS,Fishbone, I+O VS, Fishbone, I+O Laboratory Tests 08/02/21 11:19 Vital Signs Date Time Temp Pulse Resp B/P (MAP) Pulse Ox O2 Delivery O2 Flow Rate FiO2 08/03/21 06:00 98.7 98 18 129/59 (82) 98 Room Air I&O- Last 24 Hours up to 6 AM 08/03/21 06:00 Output Total 1200 ml Balance -1200 ml JAZMIN BUSH MD Aug 03, 2021 11:11
[2021-08-03 11:15] VITALS: BP 130/59
[2021-08-03 18:00] VITALS: BP 121/62
[2021-08-04] MEDS: ACETAMINOPHEN TAB 650MG DOSE (2X325MG) PO PRN (05:05)
[2021-08-04 06:00] VITALS: BP 116/58
[2021-08-04] MEDS: PRENATAL VITAMINS CHEWABLE TABLET PO SCH (07:41)
[2021-08-04] MEDS: IBUPROFEN 800 MG TAB PO PRN ×2 (07:41→16:06)
[2021-08-04] MEDS: ACETAMINOPHEN 500 MG TAB PO PRN (11:17)
--- NOTE | 2021-08-04 11:39 | IPNPDOC ---
Text Note Date of Service The patient was seen on 08/04/21. NOTE Post S: No complaints. O: AVSS NAD Abd: NT, FF ext: NT A/P 25 yo PPD#2 s/p routine PP care VS,Fishbone, I+O VS, Fishbone, I+O Vital Signs Date Time Temp Pulse Resp B/P (MAP) Pulse Ox O2 Delivery O2 Flow Rate FiO2 08/04/21 06:00 99.0 74 16 116/58 (77) 100 Room Air JAZMIN BUSH MD Aug 04, 2021 11:39
[2021-08-04 17:46] VITALS: BP 102/58
[2021-08-05] MEDS: ACETAMINOPHEN 500 MG TAB PO PRN (03:55)
[2021-08-05 06:00] VITALS: BP 107/57
[2021-08-05] MEDS: PRENATAL VITAMINS CHEWABLE TABLET PO SCH (09:06)
[2021-08-05] MEDS: IBUPROFEN 800 MG TAB PO PRN (09:38)
[2021-08-05] MEDS ORDERED: IBUP80TA PO (12:05)
[2021-08-05] MEDS ORDERED: ACET-683 PO (12:05)
== END 2021-08-05 13:45 | disposition home or self-care (01) | DRG 560 ==
LOC: M LDI 08:20 → M OBS 23:20
PROVIDERS: ADMIT Advanced Practice Midwife; ATTEND Advanced Practice Midwife
PROC: 10E0XZZ Delivery of Products of Conception, External Approach (ICD-10-PCS; principal; 2021-08-02)
PROC: 0KQM0ZZ Repair Perineum Muscle, Open Approach (ICD-10-PCS; 2021-08-02)
PROC: 3E0P7GC Introduction of Other Therapeutic Substance into Female Reproductive, Via Natural or Artificial Opening (ICD-10-PCS; 2021-08-02)
DX: O36.5930 Maternal care for other known or suspected poor fetal growth, third trimester, not applicable or unspecified (principal); F17.210 Nicotine dependence, cigarettes, uncomplicated; Z3A.40 40 weeks gestation of pregnancy; O99.334 Smoking (tobacco) complicating childbirth; O99.824 Streptococcus B carrier state complicating childbirth; O69.81X0 Labor and delivery complicated by cord around neck, without compression, not applicable or unspecified; O70.1 Second degree perineal laceration during delivery; Z37.0 Single live birth

== ENCOUNTER 2022-08-17 12:11 | Inpatient (IN) | payer OTHER ==
[~2022-08-17] VITALS: Ht 149.9 cm; Wt 54.5 kg
[~2022-08-17 12:11] MED LIST changes: +ACET-683 PO; +IBUP80TA PO
[2022-08-17 12:50] LABS: HEMOGLOBIN 15.6 g/dl (12.0-15.5); MEAN CORPUSCULAR HEMOGLOBIN 30.3 pg (27.0-33.0); MEAN CORPUSCULAR HGB CONC 31.2 g/dl (32.0-36.5); MEAN CORPUSCULAR VOLUME 97.1 fl (80.0-96.0); PLATELET COUNT, AUTOMATED 163 10^3/uL (150-450); RED BLOOD COUNT 5.15 10^6/uL (4.00-5.40); WHITE BLOOD COUNT 14.5 10^3/uL (4.0-10.0)
[2022-08-17 13:15] LABS: AMPHETAMINES LEVEL URINE NEGATIVE (NEGATIVE); BARBITURATES URINE NEGATIVE (NEGATIVE); BENZODIAZEPINES URINE NEGATIVE (NEGATIVE); COCAINE METABOLITE URINE NEGATIVE (NEGATIVE); METHADONE URINE NEGATIVE (NEGATIVE); OPIATES URINE NEGATIVE (NEGATIVE); PHENCYCLIDINE URINE NEGATIVE (NEGATIVE)
[2022-08-17 13:16] LABS: CANNABINOIDS URINE POSITIVE (NEGATIVE)
[2022-08-17 13:18] LABS: ETHYL ALCOHOL (ETHANOL) 0.003 % (0.000-0.010); HCG, SERUM QUALITATIVE NEGATIVE (NEGATIVE)
[2022-08-17 13:19] LABS: BILIRUBIN,DIRECT 0.1 MG/DL (<0.4)
[2022-08-17 13:20] LABS: ACETAMINOPHEN LEVEL < 2.0 UG/ML (10.0-20.0); ALBUMIN 4.3 G/DL (3.2-5.2); ALKALINE PHOSPHATASE 77 U/L (46-116); ALT/SGPT 90 U/L (7.0-40); AST/SGOT 68 U/L (<34); BILIRUBIN,TOTAL 0.3 MG/DL (0.3-1.2); BLOOD UREA NITROGEN 11 MG/DL (9-23); CALCIUM LEVEL 9.6 MG/DL (8.5-10.1); CARBON DIOXIDE LEVEL 25 MMOL/L (20-31); CHLORIDE LEVEL 106 MMOL/L (98-107); GLOMERULAR FILTRATION RATE > 60.0 (>60); GLUCOSE, FASTING 91 MG/DL (60-100); POTASSIUM SERUM 4.6 MMOL/L (3.5-5.1); SALICYLATE LEVEL < 3.0 MG/DL (<30); SODIUM LEVEL 138 MMOL/L (136-145); TOTAL PROTEIN 7.9 G/DL (5.7-8.2)
[2022-08-17 13:22] LABS: THYROID STIMULATING HORMONE 2.837 uIU/ML (0.55-4.78)
[2022-08-17 13:23] LABS: RSV AMPLIFICATION NEGATIVE (NEGATIVE)
[2022-08-17] MEDS ORDERED: MAALOX 30 ML SUSP *UDC PO PRN (16:25)
[2022-08-17] MEDS ORDERED: traZODone 50 MG TAB PO PRN (16:25)
[2022-08-17] MEDS ORDERED: MOM 30ML SUSPENSION UDC PO PRN (16:25)
[2022-08-17] MEDS ORDERED: SERT50TA29 PO (17:59)
[2022-08-17] MEDS ORDERED: HOME MED LIST COMPLETE! XX SCH (18:00)
[2022-08-17 18:26] VITALS: BP 95/50
[2022-08-17] MEDS: ACETAMINOPHEN TAB 650MG DOSE (2X325MG) PO PRN (21:32)
[2022-08-18] MEDS: ACETAMINOPHEN TAB 650MG DOSE (2X325MG) PO PRN (05:26)
[2022-08-18 06:42] VITALS: BP 112/53
[2022-08-18] MEDS: SERTRALINE HCL 50 MG TAB PO SCH (10:47)
[2022-08-18] MEDS ORDERED: ONDANSETRON 4MG ORAL DISINTEGRATING TAB PO PRN (14:05)
[2022-08-18] MEDS: diphenhydrAMINE 25MG CAP PO PRN (16:01)
[2022-08-18 16:10] VITALS: BP 109/56
[2022-08-19] MEDS: diphenhydrAMINE 25MG CAP PO PRN (00:16)
[2022-08-19] MEDS: ACETAMINOPHEN TAB 650MG DOSE (2X325MG) PO PRN ×2 (02:20→21:52)
[2022-08-19 06:19] VITALS: BP 108/52
[2022-08-19] MEDS: SERTRALINE HCL 50 MG TAB PO SCH (08:41)
[2022-08-19 16:40] VITALS: BP 111/55
[2022-08-20] MEDS: ACETAMINOPHEN TAB 650MG DOSE (2X325MG) PO PRN (05:11)
[2022-08-20 06:42] VITALS: BP 106/64
[2022-08-20] MEDS: SERTRALINE HCL 50 MG TAB PO SCH (08:35)
[2022-08-20] MEDS ORDERED: SERT50TA29 PO (09:19)
== END 2022-08-20 12:18 | disposition home or self-care (01) | DRG 754 ==
LOC: M ED 12:11 → M ED INP 16:24 → M PSY 18:19
PROVIDERS: ADMIT Psychiatry & Neurology Psychiatry; ATTEND Psychiatry & Neurology Psychiatry
DX: F32.9 Major depressive disorder, single episode, unspecified (principal); E03.9 Hypothyroidism, unspecified; F17.200 Nicotine dependence, unspecified, uncomplicated; F41.9 Anxiety disorder, unspecified; F12.10 Cannabis abuse, uncomplicated; F43.10 Post-traumatic stress disorder, unspecified; D64.9 Anemia, unspecified; F90.9 Attention-deficit hyperactivity disorder, unspecified type; R11.2 Nausea with vomiting, unspecified; Z62.810 Personal history of physical and sexual abuse in childhood; R74.01 Elevation of levels of liver transaminase levels; R20.0 Anesthesia of skin; Z79.899 Other long term (current) drug therapy; Z88.1 Allergy status to other antibiotic agents; Z88.8 Allergy status to other drugs, medicaments and biological substances

== ENCOUNTER → 2022-11-10 | Outpatient (CLI) | payer OTHER ==
[~2022-11-10] MED LIST changes: +SERT50TA29 PO
[2022-11-10 15:03] LABS: HEMATOCRIT 41.7 % (36.0-47.0); HEMOGLOBIN 13.4 g/dl (12.0-15.5); MEAN CORPUSCULAR HEMOGLOBIN 30.1 pg (27.0-33.0); MEAN CORPUSCULAR HGB CONC 32.1 g/dl (32.0-36.5); MEAN CORPUSCULAR VOLUME 93.7 fl (80.0-96.0); PLATELET COUNT, AUTOMATED 136 10^3/uL (150-450); RED BLOOD COUNT 4.45 10^6/uL (4.00-5.40); WHITE BLOOD COUNT 10.9 10^3/uL (4.0-10.0)
[2022-11-10 15:31] LABS: ALBUMIN 3.8 G/DL (3.2-5.2); ALKALINE PHOSPHATASE 50 U/L (46-116); ALT/SGPT 18 U/L (7.0-40); AST/SGOT 13 U/L (<34); BILIRUBIN,TOTAL 0.8 MG/DL (0.3-1.2); BLOOD UREA NITROGEN 6 MG/DL (9-23); CALCIUM LEVEL 9.3 MG/DL (8.5-10.1); CARBON DIOXIDE LEVEL 28 MMOL/L (20-31); CHLORIDE LEVEL 105 MMOL/L (98-107); CREATININE FOR GFR 0.52 MG/DL (0.55-1.30); GLOMERULAR FILTRATION RATE > 60.0 (>60); GLUCOSE, FASTING 129 MG/DL (60-100); POTASSIUM SERUM 4.1 MMOL/L (3.5-5.1); SODIUM LEVEL 139 MMOL/L (136-145); TOTAL PROTEIN 6.4 G/DL (5.7-8.2)
[2022-11-10 15:33] LABS: TOTAL 25(OH) VITAMIN D 22.7 NG/ML (20.0-100.0)
[2022-11-10 15:34] LABS: THYROID STIMULATING HORMONE 1.068 uIU/ML (0.55-4.78)
== END ==
LOC: M LAB 14:04
PROVIDERS: ATTEND Nurse Practitioner Psychiatric/Mental Health
DX: F43.10 Post-traumatic stress disorder, unspecified (principal)

== ENCOUNTER → 2023-10-09 | Outpatient (REF) | payer OTHER ==
[2023-10-09 18:48] LABS: BASO # 0.1 10^3/uL (0.0-0.2); BASO % 0.8 % (0.0-1.0); EOS # 0.2 10^3/uL (0.0-0.5); EOS % 1.4 % (0.0-3.0); HEMATOCRIT 44.3 % (36.0-47.0); LYMPH # 2.8 10^3/uL (1.5-5.0); LYMPH % 23.9 % (24.0-44.0); MEAN CORPUSCULAR HEMOGLOBIN 30.4 pg (27.0-33.0); MEAN CORPUSCULAR HGB CONC 31.6 g/dl (32.0-36.5); MEAN CORPUSCULAR VOLUME 96.3 fl (80.0-96.0); MONO % 8.5 % (2.0-8.0); NEUTROPHILS # 7.7 10^3/uL (1.5-8.5); PLATELET COUNT, AUTOMATED 148 10^3/uL (150-450); WHITE BLOOD COUNT 11.8 10^3/uL (4.0-10.0)
[2023-10-09 18:56] LABS: ALBUMIN 4.1 G/DL (3.2-5.2); ALKALINE PHOSPHATASE 67 U/L (46-116); ALT/SGPT 92 U/L (7.0-40); AST/SGOT 39 U/L (<34); BILIRUBIN,TOTAL 0.5 MG/DL (0.3-1.2); BLOOD UREA NITROGEN 11 MG/DL (9-23); CALCIUM LEVEL 9.4 MG/DL (8.5-10.1); CARBON DIOXIDE LEVEL 30 MMOL/L (20-31); CHLORIDE LEVEL 105 MMOL/L (98-107); CHOLESTEROL LEVEL 166 MG/DL (<200); CHOLESTEROL RISK RATIO 2.96 (<5); CREATININE FOR GFR 0.66 MG/DL (0.55-1.30); GLOMERULAR FILTRATION RATE > 60.0 (>60); GLUCOSE, FASTING 148 MG/DL (60-100); HDL CHOLESTEROL 55.9 MG/DL (>40); LDL CHOLESTEROL 99.9 MG/DL (<100); NON-HDL-C 110.1 MG/DL; POTASSIUM SERUM 4.3 MMOL/L (3.5-5.1); SODIUM LEVEL 141 MMOL/L (136-145); TRIGLYCERIDES LEVEL 51 MG/DL (<150)
[2023-10-09 18:58] LABS: TOTAL 25(OH) VITAMIN D 26.7 NG/ML (20.0-100.0)
== END ==
LOC: M LAB REF 17:38
PROVIDERS: ATTEND Nurse Practitioner Family
DX: R58 Hemorrhage, not elsewhere classified (principal); Z13.220 Encounter for screening for lipoid disorders; Z13.1 Encounter for screening for diabetes mellitus; E55.9 Vitamin D deficiency, unspecified

== ENCOUNTER → 2023-11-02 | Outpatient (REF) | payer OTHER ==
[2023-11-02 14:17] LABS: HIV 1&2 SCREEN NEGATIVE (NEGATIVE)
[2023-11-02 14:19] LABS: Trichomonas vaginalis (AMP) NOT DETECTED (NEGATIVE)
[2023-11-02 14:25] LABS: HEPATITIS C VIRUS ABY INDEX 0.05 INDEX (<0.8)
[2023-11-02 14:42] LABS: GC DNA AMPLIFICATION NEGATIVE (NEGATIVE)
== END ==
LOC: M LAB REF 12:15
PROVIDERS: ATTEND Nurse Practitioner Family
DX: Z11.3 Encounter for screening for infections with a predominantly sexual mode of transmission (principal); Z11.59 Encounter for screening for other viral diseases; Z11.4 Encounter for screening for human immunodeficiency virus [HIV]

== ENCOUNTER → 2024-02-15 | Outpatient (REF) | payer OTHER ==
[~2024-02-15] MED LIST changes: +ONDA-282 PO; -ONDA4TAB6 PO
[2024-02-15 13:38] LABS: ALBUMIN 3.7 G/DL (3.2-5.2); ALKALINE PHOSPHATASE 82 U/L (46-116); ALT/SGPT 106 U/L (7.0-40); AST/SGOT 77 U/L (<34); BILIRUBIN,TOTAL 0.2 MG/DL (0.3-1.2); BLOOD UREA NITROGEN 8 MG/DL (9-23); CALCIUM LEVEL 9.1 MG/DL (8.5-10.1); CARBON DIOXIDE LEVEL 28 MMOL/L (20-31); CHLORIDE LEVEL 109 MMOL/L (98-107); CREATININE FOR GFR 0.55 MG/DL (0.55-1.30); GLOMERULAR FILTRATION RATE > 60.0 (>60); GLUCOSE, FASTING 91 MG/DL (60-100); POTASSIUM SERUM 4.3 MMOL/L (3.5-5.1); SODIUM LEVEL 141 MMOL/L (136-145); TOTAL PROTEIN 6.6 G/DL (5.7-8.2)
== END ==
LOC: M LAB REF 12:04
PROVIDERS: ATTEND Nurse Practitioner Family
DX: R74.01 Elevation of levels of liver transaminase levels (principal)

== ENCOUNTER → 2024-06-14 | Outpatient (CLI) | payer OTHER | LOC: M RAD 12:08 | PROVIDERS: ATTEND Nurse Practitioner Family | DX: M54.50 Low back pain, unspecified (principal) ==

== ENCOUNTER → 2024-12-19 | Outpatient (REF) | payer OTHER ==
[~2024-12-19] MED LIST changes: +VANC125C13 PO; -VANC125C3 PO
[2024-12-19 17:35] LABS: APPEARANCE, URINE CLEAR (CLEAR); BACTERIA, URINE AUTO NEGATIVE (NEGATIVE); BILIRUBIN, URINE AUTO NEGATIVE (NEGATIVE); BLOOD, URINE BLOOD 1+ (NEGATIVE); COLOR, URINE STRAW (YELLOW); GLUCOSE, URINE (UA) AUTO NEGATIVE (NEGATIVE); KETONE, URINE AUTO NEGATIVE (NEGATIVE); LEUKOCYTE ESTERASE, URINE AUTO 1+ (NEGATIVE); NITRITE, URINE AUTO NEGATIVE (NEGATIVE); PROTEIN, URINE AUTO NEGATIVE (NEGATIVE); RBC, URINE AUTO 8 /HPF (0-3); SPECIFIC GRAVITY URINE AUTO 1.008 (1.002-1.035); SQUAMOUS EPITHELIAL CELL UR AU 2 /HPF (0-6); UROBILINOGEN, URINE AUTO 0.2 mg/dL (0.0-2.0); WBC, URINE AUTO 12 /HPF (0-3)
[2024-12-19 18:43] LABS: Trichomonas vaginalis (AMP) NOT DETECTED (NEGATIVE)
[2024-12-19 19:07] LABS: GC DNA AMPLIFICATION NEGATIVE (NEGATIVE)
== END ==
LOC: M LAB REF 16:58
PROVIDERS: ATTEND Physician Assistant Medical
DX: N39.0 Urinary tract infection, site not specified (principal); Z20.2 Contact with and (suspected) exposure to infections with a predominantly sexual mode of transmission

== ENCOUNTER 2025-04-28 13:42 | Emergency (ER) | payer OTHER ==
[~2025-04-28] VITALS: Ht 149.9 cm; Wt 47.8 kg
[2025-04-28 14:54] LABS: BASO # 0.1 10^3/uL (0.0-0.2); BASO % 0.5 % (0.0-1.0); EOS # 0.0 10^3/uL (0.0-0.5); EOS % 0.3 % (0.0-3.0); LYMPH # 1.6 10^3/uL (1.5-5.0); LYMPH % 12.2 % (24.0-44.0); MONO # 0.8 10^3/uL (0.0-0.8); MONO % 6.1 % (2.0-8.0); NEUTROPHILS # 10.4 10^3/uL (1.5-8.5); NEUTROPHILS % 80.4 % (36.0-66.0); PLATELET COUNT, AUTOMATED 182 10^3/uL (150-450)
[2025-04-28] MEDS ORDERED: IBUP200C25 PO (15:16)
[2025-04-28] MEDS ORDERED: ACET-683 PO (15:16)
[2025-04-28 15:17] LABS: ALT/SGPT 30 U/L (7.0-40); AST/SGOT 19 U/L (<34); CALCIUM LEVEL 9.9 MG/DL (8.5-10.1); CARBON DIOXIDE LEVEL 27 MMOL/L (20-31); CHLORIDE LEVEL 104 MMOL/L (98-107); CREATININE FOR GFR 0.63 MG/DL (0.55-1.30); GLOMERULAR FILTRATION RATE > 90.0 (>60); MAGNESIUM LEVEL 2.0 MG/DL (1.8-2.4); POTASSIUM SERUM 4.5 MMOL/L (3.5-5.1); SODIUM LEVEL 140 MMOL/L (136-145)
[2025-04-28 15:19] LABS: FREE T4 1.34 NG/DL (0.89-1.76)
[2025-04-28] MEDS ORDERED: HOME MED LIST COMPLETE! XX SCH (15:25)
[2025-04-28] MEDS: NS (Normal Saline) 0.9% 1,000 ML IV ONE (16:45)
[2025-04-28 17:15] VITALS: TEMP 96.6
[2025-04-28 19:15] VITALS: BP 114/54; O2SAT 98
== END 2025-04-28 19:31 | disposition home or self-care (01) ==
LOC: M ED 13:42
DX: R42 Dizziness and giddiness (principal); R00.1 Bradycardia, unspecified; F41.9 Anxiety disorder, unspecified; F44.5 Conversion disorder with seizures or convulsions; Z88.1 Allergy status to other antibiotic agents; Z88.8 Allergy status to other drugs, medicaments and biological substances; Z79.1 Long term (current) use of non-steroidal anti-inflammatories (NSAID)